=== PATIENT | male | born 1950 | race African-American/Black ===

== ENCOUNTER 2016-06-13 22:32 | Observation (INO) | payer BC ==
--- NOTE | 2016-06-13 22:54 | EDM.PDOC ---
ED HPI Trauma - General Chief Complaint: Upper Extremity Injury/Pain Stated Complaint: PT HAS CHEST DISCOMFORT/shoulder pain Source: Reports: Patient History Limitations: Reports: No limitations - History of Present Illness INITIAL COMMENTS - FREE TEXT/NARRATIVE: HISTORY AND PHYSICAL: History of present illness: [66-year-old male with a history of hypertension high cholesterol diabetes and known coronary artery disease now presents to the emergency department complaining of chest pain patient was doing strenuous lifting prior to arrival when he experienced sudden onset of left-sided chest pain. Denies pleuritic pain. Pain is not reproducible. No productive cough or fever. Is no history of blood clot or hypercoagulable state. Patient had a cardiac catheterization more than a decade ago that he states to find multiple lesions but none greater than 30% blockage. Review of systems: As per history of present illness and below otherwise all systems reviewed and negative. Past medical history: As per history of present illness and as reviewed below otherwise noncontributory. Surgical history: As per history of present illness and as reviewed below otherwise noncontributory. Social history: No reported history of drug or alcohol abuse. Family history: As per history of present illness and as reviewed below otherwise noncontributory. Physical exam: HEENT: Atraumatic, normocephalic, pupils reactive, negative for conjunctival pallor or scleral icterus, mucous membranes moist, throat clear, neck supple, nontender, trachea midline. Lungs: Clear to auscultation, breath sounds equal bilaterally, chest nontender. Heart: S1S2, regular, negative for clicks, rubs, or JVD. Abdomen: Soft, nondistended, nontender. Negative for masses or hepatosplenomegaly. Negative for costovertebral tenderness. Pelvis: Stable nontender. Genitourinary: Deferred. Rectal: Deferred. Extremities: Atraumatic, negative for cords or calf pain. Neurovascular unremarkable. Neuro: Awake, alert, oriented. Cranial nerves II through XII unremarkable. Cerebellum unremarkable. Motor and sensory unremarkable throughout. Exam nonfocal. Diagnostics: [EKG with normal sinus rhythm at 61 normal axis no STEMI. Chest x-ray chronic changes no acute disease interpreted by me CTA of the chest normal aorta no dissection no PE otherwise unremarkable] Therapeutics: [Aspirin given] Impression: [Chest pain] Plan: [Signs and symptoms consistent with chest pain possible cardiac etiology in a 66 -year-old male with multiple cardiac risk factors and known noncritical prior artery artery disease last evaluated more than a decade ago. Workup unremarkable. Discussed with patient cannot rule out cardiac etiology. He agrees with observation admission. Case discussed with Dr. Gupta hospitalist sports nutritionist is aware of history and findings and agrees with observation admission to his service for full cardiac workup position and diagnosis as appropriate pending reevaluation and review of above. Allergies/ADRs: Allergies No Known Allergies Allergy (Verified 02/25/16 01:05) Home Medications: Ambulatory Orders Aspirin [Gissel Chewable Aspirin] 81 mg PO DAILY 12/01/13 [Confirmed 06/13/16] Valsartan 320 mg PO DAILY 08/27/14 [Confirmed 06/13/16] Metoprolol Succinate [Toprol XL] 100 mg PO DAILY tab.er 02/25/16 [Confirmed 04/27] Nitroglycerin [IJP: Nitroglycerin] 1 tab SL ASDIRECTED 02/25/16 [Confirmed 06/13] Spironolactone [Aldactone] 25 mg PO DAILY tablet 02/25/16 [Confirmed 06/13/16] metFORMIN [Glucophage XR] 500 mg PO BID #60 tab.er 02/25/16 [Confirmed 06/13/16] Glimepiride 2 mg PO BIDMEALS 06/13/16 [Confirmed 06/13/16] Tamsulosin [Flomax] 0.4 mg PO DAILY 06/13/16 [Confirmed 06/13/16] Past Medical History HEENT History: Reports: Other (see below) Other HEENT History: wear glasses Cardiovascular History: Reports: CAD, High cholesterol, Hypertension Respiratory History: Reports: None Gastrointestinal History: Reports: Colon polyp, GERD, Other (see below) Other Gastrointestinal History: bleeding ulcer, acid reflux, states has gallstones Genitourinary History: Reports: None, BPH Musculoskeletal History: Reports: Arthritis, Gout Neurological History: Reports: None Psychiatric History: Reports: None Endocrine/Metabolic History: Reports: Diabetes, type II, Obesity/BMI 30+ Hematologic History: Reports: None Immunologic History: Reports: None Oncologic (Cancer) History: Reports: None Dermatologic History: Reports: None - Infectious Disease History Infectious Disease History: Reports: None - Past Surgical History Head Surgeries/Procedures: Reports: None HEENT Surgical History: Reports: None Other Cardiovascular Surgeries/Procedures: angiogram x2, no stents were placed Respiratory Surgical History: Reports: None GI Surgical History: Reports: Colonoscopy, EGD Male Surgical History: Reports: None Neurological Surgical History: Reports: None Social & Family History - Family History Family Medical History: Noncontributory Cardiac: Reports: Hypertension, [place] - Tobacco Use Smoking Status *Q: Never Smoker Second Hand Smoke Exposure: No - Caffeine Use Caffeine Use: Reports: Coffee, Tea, Other Other Caffeine Use: De caffenated Caffeine Use Comment: decaffeineted coffee - Alcohol Use Days Per Week of Alcohol Use: 0 - Recreational Drug Use Recreational Drug Use: No Drug Use in Last 12 Months: No Review of Systems - Review of Systems Review Of Systems: See Below (Per history of present illness) Trauma Exam - Physical Exam Exam: See Below (Per history of present illness) Course - Vital Signs Last Recorded V/S: Last Vital Signs Temp 36.7 C 06/13/16 23:03 Pulse 80 06/13/16 23:03 Resp 18 06/13/16 23:03 BP 132/79 06/13/16 23:03 Pulse Ox 97 06/13/16 23:03 - Orders/Labs/Meds Orders: Active Orders 24 hr Category Date Time Status Admission Status [Patient Status] [ADT] Stat ADT 06/14/16 02:00 Ordered EKG Documentation Completion [RC] STAT Care 06/13/16 23:35 Active CTA Chest W WO Contrast [Ang Chest] [CT] Stat Exams 06/13/16 23:35 Taken Chest 1V Frontal [CR] Stat Exams 06/13/16 23:35 Taken Sodium Chloride 0.9% [Normal Saline] 1,000 ml Med 06/14/16 01:00 Active IV ASDIRECTED Medication Orders Sodium Chloride (Normal Saline) 1,000 mls @ 999 mls/hr IV ASDIRECTED [facility] Last Admin: 06/14/16 01:16 Dose: 999 mls/hr Labs: Laboratory Tests 06/13/16 06/13/16 06/13/16 Range/Units 23:45 23:45 23:45 WBC 7.89 (4.0-11.0) K/uL RBC 5.04 (4.50-5.90) M/uL Hgb 13.4 (13.0-17.0) g/dL Hct 42.3 (38.0-50.0) % MCV 83.9 (80.0-98.0) fL MCH 26.6 L (27.0-32.0) pg MCHC 31.7 (31.0-37.0) g/dL RDW Std Deviation 40.5 (28.0-62.0) fl RDW Coeff of Vanna 13 (11.0-15.0) % Plt Count 261 (150-400) K/uL MPV 9.30 (7.40-12.00) fL Neut % (Auto) 40.7 L (48.0-80.0) % Lymph % (Auto) 48.0 H (16.0-40.0) % [place] % (Auto) 7.5 (0.0-15.0) % Eos % (Auto) 3.3 (0.0-7.0) % Baso % (Auto) 0.5 (0.0-1.5) % Neut # (Auto) 3.2 (1.4-5.7) K/uL Lymph # (Auto) 3.8 H (0.6-2.4) K/uL [place] # (Auto) 0.6 (0.0-0.8) K/uL Eos # (Auto) 0.3 (0.0-0.7) K/uL Baso # (Auto) 0.0 (0.0-0.1) K/uL Nucleated RBC % 0.0 /100WBC Nucleated RBCs # 0 K/uL Sodium 138 (136-146) mmol/L Potassium 4.1 (3.5-5.1) mmol/L Chloride 105 (98-110) mmol/L Carbon Dioxide 20 L (21-31) mmol/L BUN 18 (6.0-23.0) mg/dL Creatinine 1.3 (0.6-1.5) mg/dL Est Cr Clr Drug Dosing 52.13 mL/min Estimated GFR (MDRD) > 60.0 ml/min Glucose 80 (60-110) mg/dL Calcium 9.5 (8.8-10.8) mg/dL Total Bilirubin 0.5 (0.1-1.5) mg/dL AST 45 H (5-40) IU/L ALT 34 (8-54) IU/L Alkaline Phosphatase 86 (40-150) Creatine Kinase 1575 H (9-236) IU/L Troponin I < 0.10 (0.0-0.29) NG/ML Total Protein 8.9 H (6.0-8.0) g/dL Albumin 4.4 (3.4-4.8) g/dL Globulin 4.5 H (2.0-3.5) g/dL Albumin/Globulin Ratio 1.0 L (1.3-2.8) Meds: Medications Generic Name Dose Route Start Last Admin Trade Name Freq PRN Reason Stop Dose Admin Sodium Chloride 1,000 mls @ 999 mls/hr 06/14/16 01:00 06/14/16 01:16 Normal Saline IV 999 mls/hr ASDIRECTED [facility] Administration Discontinued Medications Generic Name Dose Route Start Last Admin Trade Name Freq PRN Reason Stop Dose Admin Iopamidol 50 ml 06/14/16 01:21 06/14/16 01:21 Isovue Multipack-370 (76%) IVPUSH 06/14/16 01:22 50 ml ONETIME STA Administration Departure - Departure Time of Disposition: 02:28 Disposition: Refer to Observation Condition: good Clinical Impression: Chest pain - My Orders Last 24 Hours: My Active Orders 06/13/16 23:35 EKG Documentation Completion [RC] STAT CTA Chest W WO Contrast [Ang Chest] [CT] Stat Chest 1V Frontal [CR] Stat 06/14/16 01:00 Sodium Chloride 0.9% [Normal Saline] 1,000 ml IV ASDIRECTED 06/14/16 02:00 Admission Status [Patient Status] [ADT] Stat - Assessment/Plan Last 24 Hours: My Active Orders 06/13/16 23:35 EKG Documentation Completion [RC] STAT CTA Chest W WO Contrast [Ang Chest] [CT] Stat Chest 1V Frontal [CR] Stat 06/14/16 01:00 Sodium Chloride 0.9% [Normal Saline] 1,000 ml IV ASDIRECTED 06/14/16 02:00 Admission Status [Patient Status] [ADT] Stat
[2016-06-14 00:32] LABS: CHLORIDE,CL 105 mmol/L (98-110); SODIUM,NA 138 mmol/L (136-146)
[2016-06-14] MEDS ORDERED: Sodium Chloride 0.9% 1,000 ML IV SCH (01:00)
[2016-06-14] MEDS ORDERED: Iopamidol 755 MG/ML 500 ML Multipack Bottle IVPUSH STA (01:21)
[2016-06-14] MEDS ORDERED: Ondansetron 4 MG/2 ML SDV IVPUSH ONE (02:36)
--- NOTE | 2016-06-14 03:30 | PCM.HP ---
H&P History of Present Illness - General Date of Service: 06/14/16 Admit Problem/Dx: Admission Diagnosis/Problem Admission Diagnosis/Problem Chest pain Source of Information: Patient - History of Present Illness Initial Comments - Free Text/Narative: ^^ y o diabetic hypertensive hyperlipidemic man with history non-occlusive CAD several years ago comes to Er with L anterior chest iman that feels like a pulled muscle an only comes on with reaching into a may cabinet. 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 He has been diagnosed with fibromyalgia Onset of Symptoms: Reports: unknown/unsure Duration of Symptoms: Reports: Other (brief) Location: Reports: chest (L pectoral rosina) Quality: Reports: Other (Like a pulled muscle) Worsens with: Reports: Movement (of L arm) Associated Symptoms: Reports: no other symptoms - Related Data Allergies/Adverse Reactions: Allergies Allergy/AdvReac Type Severity Reaction Status Date / Time No Known Allergies Allergy Verified 02/25/16 01:05 Home Medications: Home Meds Aspirin [Gissel Chewable Aspirin] 81 mg PO DAILY 12/01/13 [History] Valsartan 320 mg PO DAILY 08/27/14 [History] Metoprolol Succinate [Toprol XL] 100 mg PO DAILY tab.er 02/25/16 [Rx] Nitroglycerin [IJP: Nitroglycerin] 1 tab SL ASDIRECTED 02/25/16 [History] Spironolactone [Aldactone] 25 mg PO DAILY tablet 02/25/16 [Rx] metFORMIN [Glucophage XR] 500 mg PO BID #60 tab.er 02/25/16 [Rx] Glimepiride 2 mg PO BIDMEALS 06/13/16 [History] Tamsulosin [Flomax] 0.4 mg PO DAILY 06/13/16 [History] Past Medical History HEENT History: Reports: Other (see below) Other HEENT History: wear glasses Cardiovascular History: Reports: CAD, High cholesterol, Hypertension Respiratory History: Reports: None Gastrointestinal History: Reports: Colon polyp, GERD, Other (see below) Other Gastrointestinal History: bleeding ulcer, acid reflux, beeing w/u for dysphagia states has gallstones Genitourinary History: Reports: None, BPH, Other (see below) (nocturia takes tamulosin) Musculoskeletal History: Reports: Arthritis, Gout Neurological History: Reports: None Psychiatric History: Reports: None Endocrine/Metabolic History: Reports: Diabetes, type II, Obesity/BMI 30+ Hematologic History: Reports: None Immunologic History: Reports: None Oncologic (Cancer) History: Reports: None Dermatologic History: Reports: None - Infectious Disease History Infectious Disease History: Reports: None - Past Surgical History Head Surgeries/Procedures: Reports: None HEENT Surgical History: Reports: None Other Cardiovascular Surgeries/Procedures: angiogram x2, no stents were placed Respiratory Surgical History: Reports: None GI Surgical History: Reports: Colonoscopy, EGD Male Surgical History: Reports: None Neurological Surgical History: Reports: None Social & Family History - Family History Family Medical History: Noncontributory Cardiac: Reports: Hypertension, [place] Other Family History: younger half siblings ok - Tobacco Use Smoking Status *Q: Never Smoker Second Hand Smoke Exposure: No - Caffeine Use Caffeine Use: Reports: Coffee, Tea, Other Other Caffeine Use: De caffenated Caffeine Use Comment: decaffeineted coffee - Alcohol Use Days Per Week of Alcohol Use: 0 - Recreational Drug Use Recreational Drug Use: No Drug Use in Last 12 Months: No - Living Situation & Occupation Living situation: Reports: (working here 6 yrs, in [place]) H&P Review of Systems - Review of Systems: Review Of Systems: See Below General: Reports: weight gain (slow over the years) Pulmonary: Reports: No Symptoms Cardiovascular: Reports: chest pain (non exertional) Gastrointestinal: Reports: Difficulty swallowing (solids frequently get stuck upper sternal area), Other (reflux with water brash) Genitourinary: Reports: other (nocturia) Musculoskeletal: Reports: other (various aches and pains) Exam - Exam Exam: See Below - Vital Signs Vital Signs: Last Vital Signs Temp 36.7 C 06/13/16 23:03 Pulse 67 06/14/16 02:51 Resp 17 06/14/16 02:51 BP 140/85 06/14/16 02:51 Pulse Ox 97 06/14/16 02:51 Weight: 104 kg - Exam General: alert, other (bradypsychic) HEENT: Conjunctiva clear Neck: 2+ carotid pulse wo bruit Lungs: Clear to auscultation, Other (no chest wall or pectoral area tenderness) Cardiovascular: regular rate Abdomen: soft Rectal (Males) Exam: Deferred Extremities: normal inspection Skin: warm, dry, intact - Patient Data Result Diagrams: 06/13/16 23:45 06/13/16 23:45 *Q Meaningful Use (ADM) - VTE *Q VTE Criteria *Q: - Stroke *Q Stroke Criteria *Q: - AMI *Q AMI Criteria *Q: Problem List Initiated/Reviewed/Updated: Yes Orders Last 24hrs: Medication Orders Sodium Chloride (Normal Saline) 1,000 mls @ 999 mls/hr IV ASDIRECTED [facility] Last Admin: 06/14/16 01:16 Dose: 999 mls/hr Assessment/Plan Comment:: atypical pain probably muscular in origin Hx non occlusive CAD and multiple risk factors for progress diabetes hyperlipidemia hypertension ?family elevated CPK ?statins dysphagia probable esophageal pathology
[2016-06-14] MEDS ORDERED: Ibuprofen 400 MG Tab PO PRN (03:42)
[2016-06-14] MEDS ORDERED: Nitroglycerin 0.4 MG Tab.SL SL PRN (04:00)
[2016-06-14] MEDS ORDERED: metFORMIN 500 MG Tab.ER PO SCH (09:00)
[2016-06-14] MEDS ORDERED: Tamsulosin 0.4 MG Cap.ER PO SCH (09:00)
[2016-06-14] MEDS ORDERED: Spironolactone 25 MG Tab PO SCH (09:00)
[2016-06-14] MEDS ORDERED: Metoprolol Succinate 100 MG Tab.ER PO SCH ×2 (09:00→21:00)
[2016-06-14] MEDS ORDERED: Aspirin 81 MG Tab.Chew PO SCH ×2 (09:00→21:00)
[2016-06-14 09:20] VITALS: BP 105/62
--- NOTE | 2016-06-14 09:22 | PCM.PN ---
- General Info Date of Service: 06/15/16 Functional Status: Reports: other (no recurrence of chest pain, no dysphagia at breakfast (pancakes)). Denies: new symptoms - Review of Systems General: Reports: No Symptoms HEENT: Reports: no symptoms Pulmonary: Reports: no symptoms Cardiovascular: Reports: No Symptoms Gastrointestinal: Reports: No symptoms Musculoskeletal: Reports: no symptoms - Patient Data Vitals - most recent: Last Vital Signs Temp 36.3 C 06/14/16 03:42 Pulse 57 L 06/14/16 03:42 Resp 18 06/14/16 03:42 BP 105/60 06/14/16 03:42 Pulse Ox 97 06/14/16 03:43 Weight - most recent: 104 kg I&O - last 24 hours: Intake & Output 06/13/16 06/14/16 06/14/16 22:59 06:59 14:59 Output Total 180 Balance -180 Lab Results last 24 hrs: Laboratory Results - last 24 hr 06/14/16 Range/Units 04:23 Troponin I < 0.10 (0.0-0.29) NG/ML Med Orders - Current: Current Medications Aspirin (Aspirin) 81 mg PO DAILY [facility] Glimepiride (Glimepiride) 2 mg PO BIDMEALS [facility] Last Admin: 06/14/16 08:59 Dose: 2 mg Sodium Chloride (Normal Saline) 1,000 mls @ 999 mls/hr IV ASDIRECTED [facility] Last Admin: 06/14/16 01:16 Dose: 999 mls/hr Ibuprofen (Motrin) 400 mg PO Q6H PRN PRN Reason: Pain (mild 1-3) Metformin HCl (Glucophage Xr) 500 mg PO BID [facility] Last Admin: 06/14/16 08:59 Dose: 500 mg Metoprolol Succinate (Toprol Xl) 100 mg PO DAILY [facility] Nitroglycerin (Nitrostat) 0.4 mg SL ASDIRECTED PRN PRN Reason: CHEST PAIN Spironolactone (Aldactone) 25 mg PO DAILY [facility] Last Admin: 06/14/16 09:00 Dose: 25 mg Tamsulosin HCl (Flomax) 0.4 mg PO DAILY [facility] Last Admin: 06/14/16 08:59 Dose: 0.4 mg Valsartan (Diovan) 320 mg PO DAILY [facility] Discontinued Medications Iopamidol (Isovue Multipack-370 (76%)) 50 ml IVPUSH ONETIME STA Stop: 06/14/16 01:22 Last Admin: 06/14/16 01:21 Dose: 50 ml Ondansetron HCl (Zofran) 4 mg IVPUSH ONETIME ONE Stop: 06/14/16 02:37 Last Admin: 06/14/16 02:45 Dose: 4 mg - Exam General: alert, oriented Neck: supple Lungs: Clear to auscultation Cardiovascular: Regular Rate Abdomen: soft (Male) Exam: Deferred Extremities: no tenderness/swelling - Problem List Review Problem List Initiated/Reviewed/Updated: Yes - My Orders Last 24 Hours: My Active Orders 06/14/16 03:42 Blood Glucose Check, Bedside [RC] TIDMEALS Vital Signs [RC] Q4H Consult to Physician [CONS] Routine Ibuprofen [Motrin] 400 mg PO Q6H PRN Resuscitation Status Routine 06/14/16 03:43 Oxygen Therapy [RC] PRN 06/14/16 04:00 Nitroglycerin [Nitrostat] 0.4 mg SL ASDIRECTED PRN 06/14/16 04:12 Telemetry Monitoring [Cardiac Monitoring] [RC] Q8H 06/14/16 08:00 Glimepiride 2 mg PO BIDMEALS 06/14/16 09:00 Aspirin 81 mg PO DAILY Metoprolol Succinate [Toprol XL] 100 mg PO DAILY Spironolactone [Aldactone] 25 mg PO DAILY Tamsulosin [Flomax] 0.4 mg PO DAILY Valsartan [Diovan] 320 mg PO DAILY metFORMIN [Glucophage XR] 500 mg PO BID 06/14/16 Breakfast [place] [employer] Diet [DIET] - Assessment Assessment:: non cardiac pain troponin normal x2 ECG pending CK was 1575, pt has been on atorvastatin bout 3 months though it is not listed in the EMR Dr Hernandez to see - Plan Plan:: atypical pain probably muscular in origin Hx non occlusive CAD and multiple risk factors for progress diabetes hyperlipidemia hypertension ?family elevated CPK ?statins dysphagia probable esophageal pathology
--- NOTE | 2016-06-14 12:57 | PCM.DCSUM1 ---
Discharge Summary - Hospital Course Free Text/Narrative:: pt with known non-occlusive CAD presented to ER with atypical L upper chest iman HPI Initial Comments: Pt denies any exertional component to the pain which is more or less random though often provoked by reaching above head Brief History: Ecg showed L axis deviation with no signs of ischemia or prior infarction, troponin was normalon 3 determinations Blood sugar normal. CPK was elevated at 1575 .Dr Hernandez reports thiis is an increase from values before staking Atovastatin and he will substitute Divalo - Discharge Data Discharge Date: 06/14/16 Discharge Disposition: Home, Self-Care 01 Condition: Good - Discharge Diagnosis/Problem(s) (1) Atypical chest pain SNOMED Code(s): 214046418 ICD Code: R07.89 - OTHER CHEST PAIN Status: Acute Priority: High Current Visit: No (2) Diabetes mellitus type II, non insulin dependent SNOMED Code(s): 23757341 ICD Code: E11.9 - TYPE 2 DIABETES MELLITUS WITHOUT COMPLICATIONS Status: Chronic Priority: Medium Current Visit: No (3) Dysphagia SNOMED Code(s): 11304172, 510861882 ICD Code: R13.10 - DYSPHAGIA, UNSPECIFIED Status: Suspected Priority: Medium Current Visit: No - Patient Summary/Data Consults: Consultations 06/14/16 03:42 Consult to Physician [CONS] Routine - Patient Instructions Diet: Usual Diet as Tolerated Driving: May Drive Today - Discharge Plan Home Medications: Home Meds Aspirin [Gissel Chewable Aspirin] 81 mg PO DAILY 12/01/13 [History] Valsartan 320 mg PO DAILY 08/27/14 [History] Metoprolol Succinate [Toprol XL] 100 mg PO DAILY tab.er 02/25/16 [Rx] Nitroglycerin [IJP: Nitroglycerin] 0.4 mg SL ASDIRECTED 02/25/16 [History] Spironolactone [Aldactone] 25 mg PO DAILY tablet 02/25/16 [Rx] metFORMIN [Glucophage XR] 500 mg PO BID #60 tab.er 02/25/16 [Rx] Glimepiride 2 mg PO BIDMEALS 06/13/16 [History] Tamsulosin [Flomax] 0.4 mg PO DAILY 06/13/16 [History] Referrals: PCP,None [Primary Care Provider] - Zachary Johnson MD [Physician] - - Discharge Summary/Plan Comment DC Time >30 min.: No - Patient Data Vitals - Most Recent: Last Vital Signs Temp 36.5 C 06/14/16 08:00 Pulse 55 L 06/14/16 08:00 Resp 16 06/14/16 08:00 BP 105/62 06/14/16 08:00 Pulse Ox 97 06/14/16 08:00 Weight - Most Recent: 104 kg I&O - Last 24 hours: Intake & Output 06/13/16 06/14/16 06/14/16 22:59 06:59 14:59 Output Total 180 Balance -180 Lab Results - Last 24 hrs: Laboratory Results - last 24 hr 06/14/16 06/14/16 06/14/16 Range/Units 04:23 06:26 10:33 POC Glucose 90 (60-110) mg/dL Troponin I < 0.10 < 0.10 (0.0-0.29) NG/ML Med Orders - Current: Current Medications Aspirin (Aspirin) 81 mg PO BEDTIME [facility] Glimepiride (Glimepiride) 2 mg PO BIDMEALS [facility] Last Admin: 06/14/16 08:59 Dose: 2 mg Sodium Chloride (Normal Saline) 1,000 mls @ 999 mls/hr IV ASDIRECTED [facility] Last Admin: 06/14/16 01:16 Dose: 999 mls/hr Ibuprofen (Motrin) 400 mg PO Q6H PRN PRN Reason: Pain (mild 1-3) Metformin HCl (Glucophage Xr) 500 mg PO BID [facility] Last Admin: 06/14/16 08:59 Dose: 500 mg Metoprolol Succinate (Toprol Xl) 100 mg PO BEDTIME [facility] Nitroglycerin (Nitrostat) 0.4 mg SL ASDIRECTED PRN PRN Reason: CHEST PAIN Spironolactone (Aldactone) 25 mg PO DAILY [facility] Last Admin: 06/14/16 09:00 Dose: 25 mg Tamsulosin HCl (Flomax) 0.4 mg PO DAILY [facility] Last Admin: 06/14/16 08:59 Dose: 0.4 mg Valsartan (Diovan) 320 mg PO BEDTIME [facility] Discontinued Medications Iopamidol (Isovue Multipack-370 (76%)) 50 ml IVPUSH ONETIME STA Stop: 06/14/16 01:22 Last Admin: 06/14/16 01:21 Dose: 50 ml Ondansetron HCl (Zofran) 4 mg IVPUSH ONETIME ONE Stop: 06/14/16 02:37 Last Admin: 06/14/16 02:45 Dose: 4 mg *Q Meaningful Use (DIS) - VTE *Q VTE Criteria *Q: - Stroke *Q Stroke Criteria *Q: - AMI *Q AMI Criteria *Q:
--- NOTE | 2016-06-14 15:44 | CT ---
EXAM DATE: 06/14/16 PATIENT'S AGE: 66 Patient: CHRISTIAN FITCH Facility: [place], [place] Site . Site : 1950 Study: CT Chest Angio [id number]/4/2017 1:18:48 AM Ordering Physician: Sridhar Nazario Final Report: INDICATION: Left upper chest pain. TECHNIQUE: CT chest pulmonary angiogram acquired with IV contrast. 50 cc Isovue 370. COMPARISON: None FINDINGS: Cardiovascular structures: Normal vascular enhancement of the pulmonary arteries , no sign of pulmonary embolism. Heart size is normal. No sign of aneurysm or dissection in the thoracic aorta. Mediastinum and angella: No mass or adenopathy. Lungs: Clear. Pleura and pericardium: No effusions. Chest wall and axilla: No mass or adenopathy. Bones: No significant findings. Upper abdomen: Unremarkable. IMPRESSION: Unremarkable chest CT angiogram. Specifically, no pulmonary embolism, aortic dissection, or pneumonia. Dictated by Dayron Chavez MD @ 06/14/2016 1:31:10 AM Dictated by: Dayron Chavez MD @ 06/14/2016 01:31:16 (Electronic Signature) Report Signed by Proxy. [facility]
--- NOTE | 2016-06-14 15:56 | CR ---
EXAM DATE: 06/14/16 PATIENT'S AGE: 66 Patient: CHRISTIAN FITCH Facility: [place], [place] Site . Site : 1950 Study: XRay Chest [id number]/4/2017 1:19:39 AM Ordering Physician: Sridhar Nazario Final Report: INDICATION: CHEST PAIN. LEFT UPPER CHEST PAIN SINCE 1400HRS TODAY. NO NUMBNESS OR TINGLING. TECHNIQUE: Chest 1 view. COMPARISON: None. FINDINGS: Cardiovascular and mediastinum: Heart size and vasculature are normal in caliber and appearance. Mediastinum is within normal limits. Lungs and pleural space: Lungs are clear. No sign of infiltrate or mass. No sign of pleural effusion. No pneumothorax. Bones and soft tissues: No significant findings. IMPRESSION: Unremarkable chest. Dictated by: Dayron Chavez MD @ 06/14/2016 01:21:23 (Electronic Signature) Report Signed by Proxy. [facility]
--- NOTE | 2016-06-21 06:32 | CONS ---
DATE OF CONSULTATION: DATE OF : 1950 PRIMARY CARE PHYSICIAN: None PCP REASON FOR CONSULTATION: Chest pain. HISTORY OF PRESENT ILLNESS: This is a 66-year-old male with history of nonobstructive CAD, history of diabetes, hypertension, history of gallstone, and gout, who presented to the hospital at this time due to the chest pain. He does have chest pain that is a sharp pain on the left side of the chest wall when he was lifting up the vacuum. It was a very few seconds and very brief, short period of time and it has gone away by itself. It was like probably 1 to 2 from 10 pain scale. No radiation and this happened again when he was reaching the cabinet before he came to the emergency room. In the emergency room, CT angiogram also was done and was negative for PE. I saw him in the clinic for the preop for gallbladder surgery and at that time, an exercise echo done in [place] in October of last year was normal with preserved ejection fraction with LVH and no wall motion abnormality on exercise and he also was found to have elevated CPK, but it seems like his CPK has been elevated prior to statin. He has only started taking Lipitor since February. At this time, CPK was elevated to 1575. He also was told that he has fibromyalgia as well from a doctor in [place]. 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 He did not have any problem with chest pain or shortness of breath, but some time when he walked 2 flights of stairs, he can get tired, but no chest pain. No symptoms of feeling dizzy, leg swelling, or passing out and he has not been taking Plavix as well. EKG remained negative. Troponin was negative as well x3. PAST MEDICAL HISTORY: Including CAD, diabetes, hypertension, and high cholesterol. Recent cardiac testing including exercise echocardiogram in 2015 in [place], negative stress test for ischemia, showed aortic sclerosis, moderate LVH, no chest pain, but hypertensive response. EKG on June 14, 2016 shows sinus rhythm and heart rate of 56, WV interval 180, QRS duration 96, QTc interval 402. ALLERGIES: No known drug allergies. PAST SURGICAL HISTORY: Including EGD. FAMILY HISTORY: No history of CAD. SOCIAL HISTORY: He denies smoking, never smoked. Occasional drink and no drug use. REVIEW OF SYSTEMS: Has been negative for 12-point review of systems except indicated in the HPI. PHYSICAL EXAMINATION: VITAL SIGNS: Blood pressure 105/62, heart rate of 55, temperature 36.5, O2 saturation 97, and respirations 16. HEENT: Not pale. No jaundice. HEART: Normal S1, S2. No murmur. LUNGS: Clear. ABDOMEN: Soft, nontender. Bowel sounds present. No hepatosplenomegaly. EXTREMITIES: No edema. LABORATORY DATA: CBC 7, hematocrit 42, platelet 261. Sodium 138, potassium 4.1, chloride 105, bicarb 20, creatinine 1.3. Troponin is negative x3. CPK of 1575, it was higher before from the previous labs. CURRENT MEDICATIONS: Including Aldactone 25 once a day, valsartan 320 once a day, metoprolol 100 mg once a day, metformin 500 mg twice a day, glimepiride 2 mg twice a day, Lipitor 40 mg once a day, aspirin 81 mg once a day, he did not take the Plavix. ASSESSMENT AND PLAN: This is a 66-year-old male, who presented to the hospital at this time due to chest pain. It does not sound like cardiac angina to me and he has negative stress test last year with preserved ejection fraction and from the patient's story, it seems like musculoskeletal, muscle related to position and related to movement and EKG, no changes. Troponin was negative and it was negative for CT angio for PE. I believe he can be going home and regarding his elevated CPK, he has had elevated CPK for a long period of time. I would change it to some other statin that has least side effects from it. I would recommend to stop the Lipitor and then start other kind of statin, and then he should be able to be discharged. ZAHRAA / ALAN /[id number] CEM
== END 2016-06-14 14:30 | disposition home or self-care (01) ==
LOC: MW.ED 22:32 → MW.MS 06-14 02:00
PROVIDERS: ADMIT Internal Medicine; ATTEND Internal Medicine
DX: R07.89 Other chest pain (principal); E11.65 Type 2 diabetes mellitus with hyperglycemia; R13.10 Dysphagia, unspecified; I10 Essential (primary) hypertension; I25.10 Atherosclerotic heart disease of native coronary artery without angina pectoris; E78.5 Hyperlipidemia, unspecified; M79.7 Fibromyalgia; E78.00 Pure hypercholesterolemia, unspecified; K21.9 Gastro-esophageal reflux disease without esophagitis; N40.1 Benign prostatic hyperplasia with lower urinary tract symptoms; R35.1 Nocturia; M19.90 Unspecified osteoarthritis, unspecified site; M10.9 Gout, unspecified; E66.9 Obesity, unspecified; Z86.010 Personal history of colon polyps; Z82.49 Family history of ischemic heart disease and other diseases of the circulatory system; Z79.82 Long term (current) use of aspirin; Z79.84 Long term (current) use of oral hypoglycemic drugs; Z79.899 Other long term (current) drug therapy; Z98.890 Other specified postprocedural states
CPT/HCPCS: 36415; 71010; 71275; 80053; 82550; 82962; 84484; 85025; 93005; 96361; 96374; 99285; A9270; J2405; J7040; Q9967; G0378

== ENCOUNTER 2016-06-21 11:06 | Emergency (ER) | payer BC ==
--- NOTE | 2016-06-21 11:32 | EDM.PDOC ---
ED HPI GENERAL MEDICAL PROBLEM - General Chief Complaint: General Stated Complaint: PROBLEM WITH BLOOD PRESSURE Time Seen by Provider: 06/21/16 11:28 Source of Information: Reports: Patient History Limitations: Reports: No Limitations - History of Present Illness INITIAL COMMENTS - FREE TEXT/NARRATIVE: HISTORY AND PHYSICAL: History of present illness: [Patient comes to the emergency room complaining of feeling "woozy". He requests that his blood pressure be checked. He checked it at [employer] this morning and the machine gave him an error message. He's not had any chest pain, shortness of breath or difficulty breathing. He admits that he did not eat breakfast this morning and that he overall has a poor diet. Has a known history of hyperlipidemia, diabetes, hypertension, and coronary artery disease. He was hospitalized last week due to some chest pain which was determined to be noncardiac. He has no other complaints or concerns today other than that his blood pressure may be elevated.] Review of systems: As per history of present illness and below otherwise all systems reviewed and negative. Past medical history: As per history of present illness and as reviewed below otherwise noncontributory. Surgical history: As per history of present illness and as reviewed below otherwise noncontributory. Social history: No reported history of drug or alcohol abuse. Family history: As per history of present illness and as reviewed below otherwise noncontributory. Physical exam: HEENT: Atraumatic, normocephalic. PERRLA. EOMI. negative for conjunctival pallor or scleral icterus. mucous membranes moist. Lungs: Clear to auscultation, breath sounds equal bilaterally. Heart: S1S2, regular rate rhythm. No murmur gallop click or rub. Abdomen: Overweight. Soft, nondistended, nontender. Pelvis: Stable nontender. Genitourinary: Deferred. Rectal: Deferred. Extremities: Atraumatic. Neurovascular unremarkable. Neuro: Awake, alert, oriented. Motor and sensory unremarkable throughout. Exam nonfocal. Impression: [HTN] Plan: [Discussed with patient that his blood pressure is 123/66 which is excellent. Patient is satisfied with this reading. Recommend that he continue taking all his medications as prescribed, followup with his primary care provider and to go to the [facility] or lunch they have money today. He is in agreement with today's plan all of his questions are answered and concerns are addressed.] Definitive disposition and diagnosis as appropriate pending reevaluation and review of above. - Related Data Allergies Allergy/AdvReac Type Severity Reaction Status Date / Time No Known Allergies Allergy Verified 06/21/16 11:32 Home Meds: Home Meds Aspirin [Gissel Chewable Aspirin] 81 mg PO DAILY 12/01/13 [History] Valsartan 320 mg PO DAILY 08/27/14 [History] Metoprolol Succinate [Toprol XL] 100 mg PO DAILY tab.er 02/25/16 [Rx] Nitroglycerin [IJP: Nitroglycerin] 0.4 mg SL ASDIRECTED 02/25/16 [History] Spironolactone [Aldactone] 25 mg PO DAILY tablet 02/25/16 [Rx] metFORMIN [Glucophage XR] 500 mg PO BID #60 tab.er 02/25/16 [Rx] Glimepiride 2 mg PO BIDMEALS 06/13/16 [History] Tamsulosin [Flomax] 0.4 mg PO DAILY 06/13/16 [History] Pitavastatin [Livalo] 2 mg PO DAILY #30 tablet 06/14/16 [Rx] Past Medical History HEENT History: Reports: Other (see below) Other HEENT History: wear glasses Cardiovascular History: Reports: CAD, High cholesterol, Hypertension Respiratory History: Reports: None Gastrointestinal History: Reports: Colon polyp, GERD, Other (see below) Other Gastrointestinal History: bleeding ulcer, acid reflux, beeing w/u for dysphagia states has gallstones Genitourinary History: Reports: None, BPH, Other (see below) (nocturia takes tamulosin) Musculoskeletal History: Reports: Arthritis, Gout Neurological History: Reports: None Psychiatric History: Reports: None Endocrine/Metabolic History: Reports: Diabetes, type II, Obesity/BMI 30+ Hematologic History: Reports: None Immunologic History: Reports: None Oncologic (Cancer) History: Reports: None Dermatologic History: Reports: None - Infectious Disease History Infectious Disease History: Reports: None - Past Surgical History Head Surgeries/Procedures: Reports: None HEENT Surgical History: Reports: None Other Cardiovascular Surgeries/Procedures: angiogram x2, no stents were placed Respiratory Surgical History: Reports: None GI Surgical History: Reports: Colonoscopy, EGD Male Surgical History: Reports: None Neurological Surgical History: Reports: None Social & Family History - Family History Family Medical History: Noncontributory Cardiac: Reports: Hypertension, PA - Tobacco Use Smoking Status *Q: Never Smoker Second Hand Smoke Exposure: No - Caffeine Use Caffeine Use: Reports: Coffee, Tea, Other Other Caffeine Use: De caffenated Caffeine Use Comment: decaffeineted coffee - Alcohol Use Days Per Week of Alcohol Use: 0 - Recreational Drug Use Recreational Drug Use: No Drug Use in Last 12 Months: No - Living Situation & Occupation Living situation: Reports: (working here 6 yrs, in [place]) ED ROS GENERAL - Review of Systems Review Of Systems: ROS reveals no pertinent complaints other than HPI. ED EXAM, GENERAL - Physical Exam Exam: See Below Course - Vital Signs Last Recorded V/S: Last Vital Signs Temp 98.9 F 06/21/16 11:59 Pulse 67 06/21/16 11:59 Resp 16 06/21/16 11:59 BP 123/66 06/21/16 11:59 Pulse Ox 95 06/21/16 11:59 - Orders/Labs/Meds Orders: Active Orders 24 hr Category Date Time Status POC Glucose [Blood Glucose Check, Bedside] [RC] ONETIME Care 06/21/16 11:48 Active Labs: Laboratory Tests 06/21/16 Range/Units 11:52 POC Glucose 110 (60-110) mg/dL Departure - Departure Time of Disposition: 11:55 Disposition: Home, Self-Care 01 Condition: good Clinical Impression: Hypertension Qualifiers: Hypertension type: essential hypertension Qualified Code(s): I10 - Essential ( primary) hypertension - Discharge Information Instructions: Hypertension, [id number] Referrals: PCP,None [Primary Care Provider] - Forms: ED Department Discharge Additional Instructions: The following information is given to patients seen in the emergency department who are being discharged to home. This information is to outline your options for follow-up care. We provide all patients seen in our emergency department with a follow-up referral. The need for follow-up, as well as the timing and circumstances, are variable depending upon the specifics of your emergency department visit. If you don't have a primary care physician on staff, we will provide you with a referral. We always advise you to contact your personal physician following an emergency department visit to inform them of the circumstance of the visit and for follow-up with them and/or the need for any referrals to a consulting specialist. The emergency department will also refer you to a specialist when appropriate. This referral assures that you have the opportunity for follow-up care with a specialist. All of these measure are taken in an effort to provide you with optimal care, which includes your follow-up. Under all circumstances we always encourage you to contact your private physician who remains a resource for coordinating your care. When calling for follow-up care, please make the office aware that this follow-up is from your recent emergency room visit. If for any reason you are refused follow-up, please contact the [facility] emergency department at and asked to speak to the emergency department charge nurse. [facility] [address] [place] [id number] Followup with your primary care provider at the clinic listed above in 48-72 hours. Take all of your medications as prescribed. Make sure that you are eating regularly. Don't skip meals. Return to ER as needed as discussed - My Orders Last 24 Hours: My Active Orders 06/21/16 11:48 POC Glucose [Blood Glucose Check, Bedside] [] ONETIME - Assessment/Plan Last 24 Hours: My Active Orders 06/21/16 11:48 POC Glucose [Blood Glucose Check, Bedside] [] ONETIME
[2016-06-21 12:01] VITALS: BP 123/66
== END 2016-06-21 11:59 | disposition home or self-care (01) ==
LOC: MW.ED 11:06
DX: I10 Essential (primary) hypertension (principal); I25.10 Atherosclerotic heart disease of native coronary artery without angina pectoris; E78.00 Pure hypercholesterolemia, unspecified; K21.9 Gastro-esophageal reflux disease without esophagitis; M19.90 Unspecified osteoarthritis, unspecified site; E11.9 Type 2 diabetes mellitus without complications; E66.9 Obesity, unspecified; M10.9 Gout, unspecified; Z79.82 Long term (current) use of aspirin; Z79.84 Long term (current) use of oral hypoglycemic drugs; Z79.899 Other long term (current) drug therapy
CPT/HCPCS: 82962; 99282

== ENCOUNTER → 2016-07-03 | Outpatient (CLI) | payer BC, OTHER ==
--- NOTE | 2016-07-03 14:31 | CR ---
EXAMINATION: No contrast barium esophagram HISTORY: Reflux COMPARISON: CT dated 06/14/2016 TECHNIQUE: Standard double contrast barium esophagram was performed. FINDINGS: The esophagus appears mildly dilated. There is notable delayed of emptying at the esophage al sphincter. There appears to be a small hiatal hernia with narrowing at the gastroesophageal junct ion. Moderate transverse waves are noted. No ulceration or diverticulum. The mucosa appears normal. IMPRESSION: 1. Small hiatal hernia. 2. Delayed emptying at the gastroesophageal junction with moderate narrowing. This could represent a muscular spasm or achalasia. Direct visualization may be beneficial. 3. Transverse waves noted suggestive of chronic gastroesophageal reflux.
== END ==
LOC: MW.DI 08:54
PROVIDERS: ATTEND Internal Medicine
DX: K21.9 Gastro-esophageal reflux disease without esophagitis (principal); K44.9 Diaphragmatic hernia without obstruction or gangrene; K30 Functional dyspepsia
CPT/HCPCS: 74210; 74210-26

== ENCOUNTER 2017-01-08 19:20 | Emergency (ER) | payer BC ==
[2017-01-08] MEDS ORDERED: Sodium Chloride 0.9% 2.5 ML Syringe FLUSH PRN (19:33)
[2017-01-08] MEDS ORDERED: Sodium Chloride 0.9% 10 ML Syringe FLUSH PRN (19:33)
[2017-01-08] MEDS ORDERED: Aspirin 81 MG Tab.Chew PO ONE (19:33)
[2017-01-08] MEDS ORDERED: Nitroglycerin 2% Oint 1 GM UD Packet TOP ONE (19:33)
--- NOTE | 2017-01-08 19:38 | EDM.PDOC ---
ED HPI GENERAL MEDICAL PROBLEM - General Chief Complaint: Cardiovascular Problem Stated Complaint: PT HAS STOMACH PAINS Time Seen by Provider: 01/08/17 19:32 - History of Present Illness INITIAL COMMENTS - FREE TEXT/NARRATIVE: HISTORY AND PHYSICAL: History of present illness: Patient is a 67-year-old male presents past medical history presents with substernal chest pain and elevated blood pressure is history of hypertension he denies associated palpitations shortness breath nausea vomiting he's had no fever chills or other concern Review of systems: As per history of present illness and below otherwise all systems reviewed and negative. Past medical history: As per history of present illness and as reviewed below otherwise noncontributory. Surgical history: As per history of present illness and as reviewed below otherwise noncontributory. Social history: No reported history of drug or alcohol abuse. Family history: As per history of present illness and as reviewed below otherwise noncontributory. Physical exam: HEENT: Atraumatic, normocephalic, pupils reactive, negative for conjunctival pallor or scleral icterus, mucous membranes moist, throat clear, neck supple, nontender, trachea midline. Lungs: Clear to auscultation, breath sounds equal bilaterally, chest nontender. Heart: S1S2, regular, negative for clicks, rubs, or JVD. Abdomen: Soft, nondistended, nontender. Negative for masses or hepatosplenomegaly. Negative for costovertebral tenderness. Pelvis: Stable nontender. Genitourinary: Deferred. Rectal: Deferred. Extremities: Atraumatic, negative for cords or calf pain. Neurovascular unremarkable. Neuro: Awake, alert, oriented. Cranial nerves II through XII unremarkable. Cerebellum unremarkable. Motor and sensory unremarkable throughout. Exam nonfocal. Diagnostics: CBC CMP PT/INR troponin chest x-ray EKG Therapeutics: IV O2 monitor aspirin 324 mg by mouth Nitropaste 1 inch chest wall Impression: #1 chest pain #2 history of hypertension Definitive disposition and diagnosis as appropriate pending reevaluation and review of above. - Related Data Allergies Allergy/AdvReac Type Severity Reaction Status Date / Time No Known Allergies Allergy Verified 01/08/17 19:31 Home Meds: Home Meds Aspirin [Gissel Chewable Aspirin] 81 mg PO DAILY 12/01/13 [History] Valsartan 320 mg PO DAILY 08/27/14 [History] Metoprolol Succinate [Toprol XL] 100 mg PO DAILY tab.er 02/25/16 [Rx] Nitroglycerin [IJP: Nitroglycerin] 0.4 mg SL ASDIRECTED 02/25/16 [History] Spironolactone [Aldactone] 25 mg PO DAILY tablet 02/25/16 [Rx] metFORMIN [Glucophage XR] 500 mg PO BID #60 tab.er 02/25/16 [Rx] Glimepiride 1 mg PO BIDMEALS 06/13/16 [History] Tamsulosin [Flomax] 0.4 mg PO DAILY 06/13/16 [History] Celecoxib 100 mg PO ASDIRECTED 01/08/17 [History] cloNIDine [Catapres] 0.1 mg PO ONETIME 01/08/17 [History] Past Medical History HEENT History: Reports: Other (See Below) Other HEENT History: wear glasses Cardiovascular History: Reports: CAD, High Cholesterol, Hypertension Respiratory History: Reports: None Gastrointestinal History: Reports: Colon Polyp, GERD, Other (See Below) Other Gastrointestinal History: bleeding ulcer, acid reflux, beeing w/u for dysphagia states has gallstones Genitourinary History: Reports: None, BPH, Other (See Below) Musculoskeletal History: Reports: Arthritis, Gout Neurological History: Reports: None Psychiatric History: Reports: None Endocrine/Metabolic History: Reports: Diabetes, Type II, Obesity/BMI 30+ Hematologic History: Reports: None Immunologic History: Reports: None Oncologic (Cancer) History: Reports: None Dermatologic History: Reports: None - Infectious Disease History Infectious Disease History: Reports: None - Past Surgical History Head Surgeries/Procedures: Reports: None HEENT Surgical History: Reports: None Other Cardiovascular Surgeries/Procedures: angiogram x2, no stents were placed Respiratory Surgical History: Reports: None GI Surgical History: Reports: Colonoscopy, EGD Male Surgical History: Reports: None Neurological Surgical History: Reports: None Social & Family History - Family History Family Medical History: Noncontributory Cardiac: Reports: Hypertension, [place] - Tobacco Use Smoking Status *Q: Never Smoker Second Hand Smoke Exposure: No - Caffeine Use Caffeine Use: Reports: Coffee, Tea, Other Other Caffeine Use: De caffenated Caffeine Use Comment: decaffeineted coffee - Alcohol Use Days Per Week of Alcohol Use: 0 - Recreational Drug Use Recreational Drug Use: No Drug Use in Last 12 Months: No - Living Situation & Occupation Living situation: Reports: ED ROS GENERAL - Review of Systems Review Of Systems: ROS reveals no pertinent complaints other than HPI. ED EXAM, GENERAL - Physical Exam Exam: See Below (See dictation) Course - Vital Signs Text/Narrative:: All diagnostics reviewed with patient I discussed with him admission for observation patient declines and requests discharge home states he feels good will follow up closely with his private medical doctor and cosmetology educator he's return as needed as discussed with him his current medications Last Recorded V/S: Last Vital Signs Temp 36.7 C 01/08/17 19:20 Pulse 77 01/08/17 20:39 Resp 18 01/08/17 20:39 BP 125/69 01/08/17 20:39 Pulse Ox 98 01/08/17 20:39 - Orders/Labs/Meds Orders: Active Orders 24 hr Category Date Time Status Cardiac Monitoring [RC] . DIRECTED Care 01/08/17 19:33 Active EKG Documentation Completion [RC] STAT Care 01/08/17 19:33 Active Oxygen Therapy, ED [RC] ASDIRECTED Care 01/08/17 19:33 Active Pulse Oximetry [RC] ASDIRECTED Care 01/08/17 19:33 Active Chest 1V Frontal [CR] Stat Exams 01/08/17 19:33 Taken UA W/MICROSCOPIC [URIN] Stat Lab 01/08/17 20:30 Received Sodium Chloride 0.9% [Normal Saline] 1,000 ml Med 01/08/17 19:45 Active IV STAT Sodium Chloride 0.9% [Saline Flush] Med 01/08/17 19:33 Active 10 ml FLUSH ASDIRECTED PRN Sodium Chloride 0.9% [Saline Flush] Med 01/08/17 19:33 Active 2.5 ml FLUSH ASDIRECTED PRN Saline Lock Insert [OM.PC] Stat Oth 01/08/17 19:33 Ordered Medication Orders Sodium Chloride (Normal Saline) 1,000 mls @ 125 mls/hr IV STAT THOMPSON Last Admin: 01/08/17 19:48 Dose: 125 mls/hr Sodium Chloride (Saline Flush) 10 ml FLUSH ASDIRECTED PRN PRN Reason: Keep Vein Open Sodium Chloride (Saline Flush) 2.5 ml FLUSH ASDIRECTED PRN PRN Reason: Keep Vein Open Labs: Laboratory Tests 01/08/17 01/08/17 01/08/17 Range/Units 19:10 19:10 19:10 WBC 6.33 (4.0-11.0) K/uL RBC 5.06 (4.50-5.90) M/uL Hgb 13.7 (13.0-17.0) g/dL Hct 42.1 (38.0-50.0) % MCV 83.2 (80.0-98.0) fL MCH 27.1 (27.0-32.0) pg MCHC 32.5 (31.0-37.0) g/dL RDW Std Deviation 40.2 (28.0-62.0) fl RDW Coeff of Vanna 13 (11.0-15.0) % Plt Count 275 (150-400) K/uL MPV 9.30 (7.40-12.00) fL Neut % (Auto) 50.4 (48.0-80.0) % Lymph % (Auto) 37.1 (16.0-40.0) % [place] % (Auto) 9.2 (0.0-15.0) % Eos % (Auto) 2.7 (0.0-7.0) % Baso % (Auto) 0.6 (0.0-1.5) % Neut # (Auto) 3.2 (1.4-5.7) K/uL Lymph # (Auto) 2.4 (0.6-2.4) K/uL [place] # (Auto) 0.6 (0.0-0.8) K/uL Eos # (Auto) 0.2 (0.0-0.7) K/uL Baso # (Auto) 0.0 (0.0-0.1) K/uL Nucleated RBC % 0.0 /100WBC Nucleated RBCs # 0 K/uL INR 1.07 (0.86-1.11) Sodium 140 (136-146) mmol/L Potassium 3.8 (3.5-5.1) mmol/L Chloride 106 (98-110) mmol/L Carbon Dioxide 26 (21-31) mmol/L BUN 14 (6.0-23.0) mg/dL Creatinine 1.3 (0.6-1.5) mg/dL Est Cr Clr Drug Dosing 51.55 mL/min Estimated GFR (MDRD) > 60.0 ml/min Glucose 133 H (60-110) mg/dL Calcium 9.0 (8.8-10.8) mg/dL Total Bilirubin 0.3 (0.1-1.5) mg/dL AST 38 (5-40) IU/L ALT 32 (8-54) IU/L Alkaline Phosphatase 77 (40-150) Troponin I < 0.10 (0.0-0.29) NG/ML B-Natriuretic Peptide (<100) PG/ML Total Protein 8.5 H (6.0-8.0) g/dL Albumin 4.0 (3.4-4.8) g/dL Globulin 4.5 H (2.0-3.5) g/dL Albumin/Globulin Ratio 0.9 L (1.3-2.8) 01/08/17 Range/Units 19:10 WBC (4.0-11.0) K/uL RBC (4.50-5.90) M/uL Hgb (13.0-17.0) g/dL Hct (38.0-50.0) % MCV (80.0-98.0) fL MCH (27.0-32.0) pg MCHC (31.0-37.0) g/dL RDW Std Deviation (28.0-62.0) fl RDW Coeff of Vanna (11.0-15.0) % Plt Count (150-400) K/uL MPV (7.40-12.00) fL Neut % (Auto) (48.0-80.0) % Lymph % (Auto) (16.0-40.0) % [place] % (Auto) (0.0-15.0) % Eos % (Auto) (0.0-7.0) % Baso % (Auto) (0.0-1.5) % Neut # (Auto) (1.4-5.7) K/uL Lymph # (Auto) (0.6-2.4) K/uL [place] # (Auto) (0.0-0.8) K/uL Eos # (Auto) (0.0-0.7) K/uL Baso # (Auto) (0.0-0.1) K/uL Nucleated RBC % /100WBC Nucleated RBCs # K/uL INR (0.86-1.11) Sodium (136-146) mmol/L Potassium (3.5-5.1) mmol/L Chloride (98-110) mmol/L Carbon Dioxide (21-31) mmol/L BUN (6.0-23.0) mg/dL Creatinine (0.6-1.5) mg/dL Est Cr Clr Drug Dosing mL/min Estimated GFR (MDRD) ml/min Glucose (60-110) mg/dL Calcium (8.8-10.8) mg/dL Total Bilirubin (0.1-1.5) mg/dL AST (5-40) IU/L ALT (8-54) IU/L Alkaline Phosphatase (40-150) Troponin I (0.0-0.29) NG/ML B-Natriuretic Peptide 47 (<100) PG/ML Total Protein (6.0-8.0) g/dL Albumin (3.4-4.8) g/dL Globulin (2.0-3.5) g/dL Albumin/Globulin Ratio (1.3-2.8) Meds: Medications Generic Name Dose Route Start Last Admin Trade Name Freq PRN Reason Stop Dose Admin Sodium Chloride 1,000 mls @ 125 mls/hr 01/08/17 19:45 01/08/17 19:48 Normal Saline IV 125 mls/hr STAT THOMPSON Administration Sodium Chloride 10 ml 01/08/17 19:33 Saline Flush FLUSH ASDIRECTED PRN Keep Vein Open Sodium Chloride 2.5 ml 01/08/17 19:33 Saline Flush FLUSH ASDIRECTED PRN Keep Vein Open Discontinued Medications Generic Name Dose Route Start Last Admin Trade Name Freq PRN Reason Stop Dose Admin Aspirin 324 mg 01/08/17 19:33 01/08/17 19:48 Aspirin PO 01/08/17 19:34 324 mg ONETIME ONE Administration Nitroglycerin 1 gm 01/08/17 19:33 01/08/17 19:48 Nitro-Bid 2% TOP 01/08/17 19:34 1 gm ONETIME ONE Administration Departure - Departure Time of Disposition: 20:46 Disposition: Home, Self-Care 01 Condition: Good Clinical Impression: Chest pain Hypertension Qualifiers: Hypertension type: essential hypertension Qualified Code(s): I10 - Essential ( primary) hypertension Referrals: PCP,None [Primary Care Provider] - Forms: ED Department Discharge Additional Instructions: The following information is given to patients seen in the emergency department who are being discharged to home. This information is to outline your options for follow-up care. We provide all patients seen in our emergency department with a follow-up referral. The need for follow-up, as well as the timing and circumstances, are variable depending upon the specifics of your emergency department visit. If you don't have a primary care physician on staff, we will provide you with a referral. We always advise you to contact your personal physician following an emergency department visit to inform them of the circumstance of the visit and for follow-up with them and/or the need for any referrals to a consulting specialist. The emergency department will also refer you to a specialist when appropriate. This referral assures that you have the opportunity for followup care with a specialist. All of these measure are taken in an effort to provide you with optimal care, which includes your followup. Under all circumstances we always encourage you to contact your private physician who remains a resource for coordinating your care. When calling for followup care, please make the office aware that this follow-up is from your recent emergency room visit. If for any reason you are refused follow-up, please contact the [facility] emergency department at and asked to speak to the emergency department charge nurse. Follow-up primary medical doctor and cardiology as discussed ROSA continue current medications return as needed as discussed - My Orders Last 24 Hours: My Active Orders 01/08/17 19:33 Cardiac Monitoring [RC] . DIRECTED EKG Documentation Completion [RC] STAT Oxygen Therapy, ED [RC] ASDIRECTED Pulse Oximetry [RC] ASDIRECTED Chest 1V Frontal [CR] Stat Sodium Chloride 0.9% [Saline Flush] 10 ml FLUSH ASDIRECTED PRN Sodium Chloride 0.9% [Saline Flush] 2.5 ml FLUSH ASDIRECTED PRN Saline Lock Insert [OM.PC] Stat 01/08/17 19:45 Sodium Chloride 0.9% [Normal Saline] 1,000 ml IV STAT 01/08/17 20:30 UA W/MICROSCOPIC [URIN] Stat - Assessment/Plan Last 24 Hours: My Active Orders 01/08/17 19:33 Cardiac Monitoring [RC] . DIRECTED EKG Documentation Completion [RC] STAT Oxygen Therapy, ED [RC] ASDIRECTED Pulse Oximetry [RC] ASDIRECTED Chest 1V Frontal [CR] Stat Sodium Chloride 0.9% [Saline Flush] 10 ml FLUSH ASDIRECTED PRN Sodium Chloride 0.9% [Saline Flush] 2.5 ml FLUSH ASDIRECTED PRN Saline Lock Insert [OM.PC] Stat 01/08/17 19:45 Sodium Chloride 0.9% [Normal Saline] 1,000 ml IV STAT 01/08/17 20:30 UA W/MICROSCOPIC [URIN] Stat
[2017-01-08] MEDS ORDERED: Sodium Chloride 0.9% 1,000 ML IV SCH (19:45)
[2017-01-08 20:03] LABS: CHLORIDE,CL 106 mmol/L (98-110); SODIUM,NA 140 mmol/L (136-146)
[2017-01-08 21:16] VITALS: BP 123/65
--- NOTE | 2017-01-09 11:02 | CR ---
EXAM DATE: 01/08/17 PATIENT'S AGE: 67 Patient: CHRISTIAN FITCH Facility: [place], [place] Site . Site : 1950 Study: XRay Chest [id number] 8:06:50 PM Ordering Physician: Doctor Singh Final Report: INDICATION: pain TECHNIQUE: Chest 1 view COMPARISON: June 14, 2016 FINDINGS: Cardiovascular and mediastinum: Heart size and vasculature are normal in caliber and appearance aside from atherosclerotic disease. Mediastinum is within normal limits. Lungs and pleural space: No focal consolidation. No sign of pleural effusion. No pneumothorax. Bones and soft tissues: No significant findings. IMPRESSION: No acute cardiopulmonary disease. Dictated by Michael Serna MD @ 01/08/2017 8:27:50 PM Dictated by: Michael Serna MD @ 01/08/2017 20:27:59 (Electronic Signature) Report Signed by Proxy. [email or web address]
== END 2017-01-08 21:10 | disposition home or self-care (01) ==
LOC: MW.ED 19:20
DX: R07.2 Precordial pain (principal); E11.9 Type 2 diabetes mellitus without complications; I10 Essential (primary) hypertension; Z79.82 Long term (current) use of aspirin; Z79.84 Long term (current) use of oral hypoglycemic drugs; Z79.899 Other long term (current) drug therapy
CPT/HCPCS: 71010; 80053; 81001; 83880; 84484; 85025; 85610; 93005; 96360; 99284; A9270; J7040; 99283

== ENCOUNTER 2017-04-12 17:51 | Emergency (ER) | payer BC ==
[2017-04-12] MEDS ORDERED: Lidocaine 2% Viscous Solution 15 ML Cup PO ONE (18:42)
[2017-04-12] MEDS ORDERED: Benzocaine 20% Topical Spray UD MUCMEM ONE (18:42)
--- NOTE | 2017-04-12 18:45 | EDM.PDOC ---
ED HPI GENERAL MEDICAL PROBLEM - General Chief Complaint: ENT Problem Stated Complaint: STUFFING NOSE AND EAR DISCOMFORT Time Seen by Provider: 04/12/17 18:30 Source of Information: Reports: Patient History Limitations: Reports: No Limitations - History of Present Illness INITIAL COMMENTS - FREE TEXT/NARRATIVE: HISTORY AND PHYSICAL: History of present illness: [Patient comes to the emergency room complaining of right cheek pain and swelling. Symptoms began suddenly this morning and have gradually worsened throughout the day. Pain extends from his right upper lip into his right ear. He denies any dental pain, abscesses or bad teeth to his upper jaw. He has a history of tooth decay to front incisor. No fever or chills. No chest pain shortness of breath or difficulty breathing. He's had no nausea vomiting or abdominal pain. He describes the pain as a throbbing sensation to his right face. No blurred vision or double vision. No drainage from his ear, no sore throat or runny nose. Admits to some swelling on the right side of his neck.] Review of systems: As per history of present illness and below otherwise all systems reviewed and negative. Past medical history: As per history of present illness and as reviewed below otherwise noncontributory. Surgical history: As per history of present illness and as reviewed below otherwise noncontributory. Social history: No reported history of drug or alcohol abuse. Family history: As per history of present illness and as reviewed below otherwise noncontributory. Physical exam: HEENT: Atraumatic, normocephalic. Wears glasses. TMs are pearly campos and without erythema bilaterally. No nasal discharge noted. Swelling is appreciated over his right upper lip and cheek. Is tender with palpation. Tooth #7 shows black decay at the gumline, with bright erythema and swelling extending into the gum tissue. Is tender with palpation. Lungs: Clear to auscultation, breath sounds equal bilaterally. Heart: S1S2, regular rate and rhythm. Extremities: Atraumatic, full range of motion. Neurovascular unremarkable. Neuro: Awake, alert, oriented. Motor and sensory unremarkable throughout. Exam nonfocal. Impression: [Dental abscess] Plan: [Rx written for amoxicillin 500mg (#32) si po now, then 1 po TID x 10 days 0 RF's, follow up with dentist next week. Tylenol alternating with ibuprofen. Dental balls given to patient. She verbalized understanding of today's discussion.] Definitive disposition and diagnosis as appropriate pending reevaluation and review of above. Right Face Pain Score (Numeric/FACES): 5 - Related Data Allergies Allergy/AdvReac Type Severity Reaction Status Date / Time No Known Allergies Allergy Verified 04/12/17 18:19 Home Meds: Home Meds Aspirin [Gissel Chewable Aspirin] 81 mg PO DAILY 12/01/13 [History] Valsartan 320 mg PO DAILY 08/27/14 [History] Metoprolol Succinate [Toprol XL] 100 mg PO DAILY tab.er 02/25/16 [Rx] Nitroglycerin [IJP: Nitroglycerin] 0.4 mg SL ASDIRECTED 02/25/16 [History] Spironolactone [Aldactone] 25 mg PO DAILY tablet 02/25/16 [Rx] metFORMIN [Glucophage XR] 500 mg PO BID #60 tab.er 02/25/16 [Rx] Glimepiride 1 mg PO BIDMEALS 06/13/16 [History] Tamsulosin [Flomax] 0.4 mg PO DAILY 06/13/16 [History] Celecoxib 100 mg PO BID 01/08/17 [History] cloNIDine [Catapres] 0.1 mg PO ONETIME 01/08/17 [History] Past Medical History HEENT History: Reports: Other (See Below) Other HEENT History: wear glasses Cardiovascular History: Reports: CAD, High Cholesterol, Hypertension Respiratory History: Reports: None Gastrointestinal History: Reports: Colon Polyp, GERD, Other (See Below) Other Gastrointestinal History: bleeding ulcer, acid reflux, beeing w/u for dysphagia states has gallstones Genitourinary History: Reports: None, BPH, Other (See Below) Musculoskeletal History: Reports: Arthritis, Gout Neurological History: Reports: None Psychiatric History: Reports: None Endocrine/Metabolic History: Reports: Diabetes, Type II, Obesity/BMI 30+ Hematologic History: Reports: None Immunologic History: Reports: None Oncologic (Cancer) History: Reports: None Dermatologic History: Reports: None - Infectious Disease History Infectious Disease History: Reports: None - Past Surgical History Head Surgeries/Procedures: Reports: None HEENT Surgical History: Reports: None Cardiovascular Surgical History: Reports: None Other Cardiovascular Surgeries/Procedures: angiogram x2, no stents were placed Respiratory Surgical History: Reports: None GI Surgical History: Reports: Colonoscopy, EGD Male Surgical History: Reports: None Neurological Surgical History: Reports: None Social & Family History - Family History Family Medical History: Noncontributory Cardiac: Reports: Hypertension, [place] - Tobacco Use Smoking Status *Q: Never Smoker Second Hand Smoke Exposure: No - Caffeine Use Caffeine Use: Reports: None Other Caffeine Use: De caffenated Caffeine Use Comment: decaffeineted coffee - Alcohol Use Days Per Week of Alcohol Use: 0 - Recreational Drug Use Recreational Drug Use: No Drug Use in Last 12 Months: No - Living Situation & Occupation Living situation: Reports: ED ROS ENT - Review of Systems Review Of Systems: ROS reveals no pertinent complaints other than HPI. ED EXAM, ENT - Physical Exam Exam: See Below Course - Vital Signs Last Recorded V/S: Last Vital Signs Temp 99.4 F 04/12/17 19:25 Pulse 69 04/12/17 19:25 Resp 16 04/12/17 19:25 BP 118/63 04/12/17 19:25 Pulse Ox 98 04/12/17 19:25 - Orders/Labs/Meds Meds: Medications Discontinued Medications Generic Name Dose Route Start Last Admin Trade Name Freq PRN Reason Stop Dose Admin Benzocaine 2 each 04/12/17 18:42 04/12/17 19:23 Hurricaine One 20% MUCMEM 04/12/17 18:43 2 each ONETIME ONE Administration Lidocaine HCl 15 ml 04/12/17 18:42 04/12/17 19:23 Xylocaine 2% Viscous PO 04/12/17 18:43 15 ml ONETIME ONE Administration Departure - Departure Time of Disposition: 18:45 Disposition: Home, Self-Care 01 Condition: Good Clinical Impression: Dental abscess - Discharge Information Instructions: Dental Abscess, [id number] Referrals: PCP,None [Primary Care Provider] - Forms: ED Department Discharge Additional Instructions: The following information is given to patients seen in the emergency department who are being discharged to home. This information is to outline your options for follow-up care. We provide all patients seen in our emergency department with a follow-up referral. The need for follow-up, as well as the timing and circumstances, are variable depending upon the specifics of your emergency department visit. If you don't have a primary care physician on staff, we will provide you with a referral. We always advise you to contact your personal physician following an emergency department visit to inform them of the circumstance of the visit and for follow-up with them and/or the need for any referrals to a consulting specialist. The emergency department will also refer you to a specialist when appropriate. This referral assures that you have the opportunity for follow-up care with a specialist. All of these measure are taken in an effort to provide you with optimal care, which includes your follow-up. Under all circumstances we always encourage you to contact your private physician who remains a resource for coordinating your care. When calling for follow-up care, please make the office aware that this follow-up is from your recent emergency room visit. If for any reason you are refused follow-up, please contact the [facility] emergency department at and asked to speak to the emergency department charge nurse. Follow-up with your dentist early next week. Take antibiotics as prescribed. Use dental balls, Tylenol and ibuprofen as needed for discomfort. Return to ER as needed as discussed.
[2017-04-12 19:40] VITALS: BP 118/63
== END 2017-04-12 19:25 | disposition home or self-care (01) ==
LOC: MW.ED 17:51
DX: K04.7 Periapical abscess without sinus (principal); I10 Essential (primary) hypertension; I25.10 Atherosclerotic heart disease of native coronary artery without angina pectoris; E78.00 Pure hypercholesterolemia, unspecified; K21.9 Gastro-esophageal reflux disease without esophagitis; E11.9 Type 2 diabetes mellitus without complications; Z95.5 Presence of coronary angioplasty implant and graft; Z79.82 Long term (current) use of aspirin; Z79.84 Long term (current) use of oral hypoglycemic drugs; Z79.899 Other long term (current) drug therapy
CPT/HCPCS: 99283; A9270; 99282

== ENCOUNTER 2017-04-26 18:16 | Emergency (ER) | payer BC ==
--- NOTE | 2017-04-26 19:18 | EDM.PDOC ---
ED HPI GENERAL MEDICAL PROBLEM - General Chief Complaint: ENT Problem Stated Complaint: R EAR PAIN Time Seen by Provider: 04/26/17 18:36 Source of Information: Reports: Patient History Limitations: Reports: No Limitations - History of Present Illness INITIAL COMMENTS - FREE TEXT/NARRATIVE: HISTORY AND PHYSICAL: History of present illness: Patient is a 67-year-old male who presents to the emergency room with complaints of right ear pain and difficulty hearing April 12, 2017. T had recently been on a round of antibiotics for this discomfort but has not had any improvement with the pain. Denies any drainage from the ear. He has had no previous problems with cerumen. Denies fever, chills, chest pain or shortness of breath. Denies any GI symptoms or complaints. Review of systems: As per history of present illness and below otherwise all systems reviewed and negative. Past medical history: As per history of present illness and as reviewed below otherwise noncontributory. Surgical history: As per history of present illness and as reviewed below otherwise noncontributory. Social history: No reported history of drug or alcohol abuse. Family history: As per history of present illness and as reviewed below otherwise noncontributory. Physical exam: General: Well-developed and well-nourished 67-year-old -[place] male. Alert and oriented. HEENT: Atraumatic, normocephalic, pupils reactive, negative for conjunctival pallor or scleral icterus, mucous membranes moist, able to visualize the right tympanic membrane due to cerumen, left TM normal, throat clear, neck supple, nontender, trachea midline. Lungs: Clear to auscultation, breath sounds equal bilaterally, chest nontender. Heart: S1S2, regular, negative for clicks, rubs, or JVD. Abdomen: Soft, nondistended, nontender. Negative for masses or hepatosplenomegaly. Negative for costovertebral tenderness. Pelvis: Stable nontender. Genitourinary: Deferred. Rectal: Deferred. Extremities: Atraumatic, negative for cords or calf pain. Neurovascular unremarkable. Neuro: Awake, alert, oriented. Cranial nerves II through XII unremarkable. Cerebellum unremarkable. Motor and sensory unremarkable throughout. Exam nonfocal. Diagnostics: [] Therapeutics: Ear irrigation Impression: Otitis media Otitis externa Cerumen Impaction Plan: 1. Avoid putting Q-tips in the ear. Take the oral antibiotic as directed. The external drop twice daily in the right ear 2. He is follow-up with the logistics research engineer, the phone number has been provided for you. Return to the ED as needed and as discussed. Definitive disposition and diagnosis as appropriate pending reevaluation and review of above. right ear Pain Score (Numeric/FACES): 5 - Related Data Allergies Allergy/AdvReac Type Severity Reaction Status Date / Time No Known Allergies Allergy Verified 04/12/17 18:19 Home Meds: Home Meds Aspirin [Gissel Chewable Aspirin] 81 mg PO DAILY 12/01/13 [History] Valsartan 320 mg PO DAILY 08/27/14 [History] Metoprolol Succinate [Toprol XL] 100 mg PO DAILY tab.er 02/25/16 [Rx] Nitroglycerin [IJP: Nitroglycerin] 0.4 mg SL ASDIRECTED 02/25/16 [History] Spironolactone [Aldactone] 25 mg PO DAILY tablet 02/25/16 [Rx] metFORMIN [Glucophage XR] 500 mg PO BID #60 tab.er 02/25/16 [Rx] Glimepiride 1 mg PO BIDMEALS 06/13/16 [History] Tamsulosin [Flomax] 0.4 mg PO DAILY 06/13/16 [History] Celecoxib 100 mg PO BID 01/08/17 [History] cloNIDine [Catapres] 0.1 mg PO ONETIME 01/08/17 [History] Amoxicillin/Clavulanate K [Augmentin 875-125 MG] 1 tab PO BID 10 Days #20 tablet 04/26/17 [Rx] Ciprofloxacin [Ciprofloxacin 0.3% [facility] Soln] 4 drop OP BID 7 Days #1 bottle [Rx] Past Medical History HEENT History: Reports: Other (See Below) Other HEENT History: wear glasses Cardiovascular History: Reports: CAD, High Cholesterol, Hypertension Respiratory History: Reports: None Gastrointestinal History: Reports: Colon Polyp, GERD, Other (See Below) Other Gastrointestinal History: bleeding ulcer, acid reflux, beeing w/u for dysphagia states has gallstones Genitourinary History: Reports: None, BPH, Other (See Below) Musculoskeletal History: Reports: Arthritis, Gout Neurological History: Reports: None Psychiatric History: Reports: None Endocrine/Metabolic History: Reports: Diabetes, Type II, Obesity/BMI 30+ Hematologic History: Reports: None Immunologic History: Reports: None Oncologic (Cancer) History: Reports: None Dermatologic History: Reports: None - Infectious Disease History Infectious Disease History: Reports: None - Past Surgical History Head Surgeries/Procedures: Reports: None HEENT Surgical History: Reports: None Cardiovascular Surgical History: Reports: None Other Cardiovascular Surgeries/Procedures: angiogram x2, no stents were placed Respiratory Surgical History: Reports: None GI Surgical History: Reports: Colonoscopy, EGD Male Surgical History: Reports: None Neurological Surgical History: Reports: None Social & Family History - Family History Family Medical History: Noncontributory Cardiac: Reports: Hypertension, [place] - Tobacco Use Smoking Status *Q: Never Smoker Second Hand Smoke Exposure: No - Caffeine Use Caffeine Use: Reports: None Other Caffeine Use: De caffenated Caffeine Use Comment: decaffeineted coffee - Alcohol Use Days Per Week of Alcohol Use: 0 - Recreational Drug Use Recreational Drug Use: No Drug Use in Last 12 Months: No - Living Situation & Occupation Living situation: Reports: ED ROS ENT - Review of Systems Review Of Systems: ROS reveals no pertinent complaints other than HPI. ED EXAM, ENT - Physical Exam Exam: See Below (See dictation) Course - Vital Signs Last Recorded V/S: Last Vital Signs Temp 97.7 F 04/26/17 20:00 Pulse 61 04/26/17 20:00 Resp 18 04/26/17 20:00 BP 102/64 04/26/17 20:00 Pulse Ox 98 04/26/17 20:00 Departure - Departure Time of Disposition: 19:50 Disposition: Home, Self-Care 01 Clinical Impression: Impacted cerumen, right ear Otitis externa Qualifiers: Otitis externa type: unspecified type Chronicity: acute Laterality: right Qualified Code(s): H60.501 - Unspecified acute noninfective otitis externa, right ear Otitis media Qualifiers: Otitis media type: suppurative Chronicity: unspecified Laterality: right Qualified Code(s): H66.41 - Suppurative otitis media, unspecified, right ear - Discharge Information Prescriptions: Amoxicillin/Clavulanate K [Augmentin 875-125 MG] 1 tab PO BID 10 Days #20 tablet Ciprofloxacin [Ciprofloxacin 0.3% Ophth Soln] 4 drop OP BID 7 Days #1 bottle Instructions: Otitis Externa, [id number], Otitis Media, Adult, [id number] Referrals: José Miguel Heredia MD [Primary Care Provider] - Forms: ED Department Discharge Additional Instructions: My general discharge The following information is given to patients seen in the emergency department who are being discharged to home. This information is to outline your options for follow-up care. We provide all patients seen in our emergency department with a follow-up referral. The need for follow-up, as well as the timing and circumstances, are variable depending upon the specifics of your emergency department visit. If you don't have a primary care physician on staff, we will provide you with a referral. We always advise you to contact your personal physician following an emergency department visit to inform them of the circumstance of the visit and for follow-up with them and/or the need for any referrals to a consulting specialist. The emergency department will also refer you to a specialist when appropriate. This referral assures that you have the opportunity for follow-up care with a specialist. All of these measure are taken in an effort to provide you with optimal care, which includes your follow-up. Under all circumstances we always encourage you to contact your private physician who remains a resource for coordinating your care. When calling for follow-up care, please make the office aware that this follow-up is from your recent emergency room visit. If for any reason you are refused follow-up, please contact the [facility] Emergency Department at and asked to speak to the emergency department charge nurse. [facility] Specialty Care - ENT [address] [place] [phone] 1. Avoid putting Q-tips in the ear. Take the oral antibiotic as directed. The external drop twice daily in the right ear 2. Please follow-up with the logistics research engineer, Dr LUU, the phone number has been provided for you. Return to the ED as needed and as discussed.
[2017-04-26 20:51] VITALS: BP 102/64
== END 2017-04-26 20:00 | disposition home or self-care (01) ==
LOC: MW.ED 18:16
DX: H61.21 Impacted cerumen, right ear (principal); H60.501 Unspecified acute noninfective otitis externa, right ear; H66.41 Suppurative otitis media, unspecified, right ear; E78.00 Pure hypercholesterolemia, unspecified; I10 Essential (primary) hypertension; E11.9 Type 2 diabetes mellitus without complications; Z79.899 Other long term (current) drug therapy; Z79.82 Long term (current) use of aspirin; Z79.84 Long term (current) use of oral hypoglycemic drugs
CPT/HCPCS: 69209; 99282

== ENCOUNTER 2017-07-18 06:45 | Emergency (ER) | payer BC ==
--- NOTE | 2017-07-18 07:13 | EDM.PDOC ---
ED HPI GENERAL MEDICAL PROBLEM - General Chief Complaint: Cardiovascular Problem Stated Complaint: BLOOD PRESSURE IS HIGH Time Seen by Provider: 07/18/17 07:11 Source of Information: Reports: Patient - History of Present Illness INITIAL COMMENTS - FREE TEXT/NARRATIVE: HISTORY AND PHYSICAL: History of present illness: []Patient awoke from sleep today and checked his blood pressure is in the 160s, at approximately between 5 and 6 AM, he had not taken his medications and he states he was dizzy at that time. After taking his blood pressure he did take his medication appears to be much improved already shortly after 7 AM patient is asymptomatic at current No fever nausea vomiting diarrhea constipation chest pain shortness breath headache dizziness palpitation no bowel or urine symptoms He has been following with Dr. Yen for his hypertension as well as Dr. heredia Review of systems: As per history of present illness and below otherwise all systems reviewed and negative. Past medical history: As per history of present illness and as reviewed below otherwise noncontributory. Surgical history: As per history of present illness and as reviewed below otherwise noncontributory. Social history: No reported history of drug or alcohol abuse. Family history: As per history of present illness and as reviewed below otherwise noncontributory. Physical exam: HEENT: Atraumatic, normocephalic, pupils reactive, negative for conjunctival pallor or scleral icterus, mucous membranes moist, throat clear, neck supple, nontender, trachea midline. Lungs: Clear to auscultation, breath sounds equal bilaterally, chest nontender. Heart: S1S2, regular, negative for clicks, rubs, or JVD. Abdomen: Soft, nondistended, nontender. Negative for masses or hepatosplenomegaly. Negative for costovertebral tenderness. Pelvis: Stable nontender. Genitourinary: Deferred. Rectal: Deferred. Extremities: Atraumatic, negative for cords or calf pain. Neurovascular unremarkable. Neuro: Awake, alert, oriented. Cranial nerves II through XII unremarkable. Cerebellum unremarkable. Motor and sensory unremarkable throughout. Exam nonfocal. Diagnostics: [CBC CMP troponin EKG Chest 1 view ] Therapeutics: [None] Impression: [ dizziness resolved Hypertension controlled with medication Chronic history of baseline ] Definitive disposition and diagnosis as appropriate pending reevaluation and review of above. - Related Data Allergies Allergy/AdvReac Type Severity Reaction Status Date / Time No Known Allergies Allergy Verified 07/18/17 06:59 Home Meds: Home Meds Aspirin [Gissel Chewable Aspirin] 81 mg PO DAILY 12/01/13 [History] Valsartan 320 mg PO DAILY 08/27/14 [History] Metoprolol Succinate [Toprol XL] 100 mg PO DAILY tab.er 02/25/16 [Rx] Nitroglycerin [IJP: Nitroglycerin] 0.4 mg SL ASDIRECTED 02/25/16 [History] Spironolactone [Aldactone] 25 mg PO DAILY tablet 02/25/16 [Rx] metFORMIN [Glucophage XR] 500 mg PO BID #60 tab.er 02/25/16 [Rx] Glimepiride 1 mg PO BIDMEALS 06/13/16 [History] Tamsulosin [Flomax] 0.4 mg PO DAILY 06/13/16 [History] Celecoxib 100 mg PO BID PRN 01/08/17 [History] cloNIDine [Catapres] 0.1 mg PO ASDIRECTED 01/08/17 [History] Past Medical History HEENT History: Reports: Impaired Vision, Other (See Below) Other HEENT History: wear glasses Cardiovascular History: Reports: CAD, High Cholesterol, Hypertension Respiratory History: Reports: None Gastrointestinal History: Reports: Colon Polyp, GERD, Other (See Below) Other Gastrointestinal History: bleeding ulcer, acid reflux, beeing w/u for dysphagia states has gallstones Genitourinary History: Reports: BPH, Other (See Below) Musculoskeletal History: Reports: Arthritis, Gout Neurological History: Reports: None Psychiatric History: Reports: None Endocrine/Metabolic History: Reports: Diabetes, Type II, Obesity/BMI 30+ Hematologic History: Reports: None Immunologic History: Reports: None Oncologic (Cancer) History: Reports: None Dermatologic History: Reports: None - Infectious Disease History Infectious Disease History: Reports: None - Past Surgical History Head Surgeries/Procedures: Reports: None HEENT Surgical History: Reports: None Cardiovascular Surgical History: Reports: None Other Cardiovascular Surgeries/Procedures: angiogram x2, no stents were placed Respiratory Surgical History: Reports: None GI Surgical History: Reports: Colonoscopy, EGD Male Surgical History: Reports: None Neurological Surgical History: Reports: None Social & Family History - Family History Family Medical History: Noncontributory Cardiac: Reports: Hypertension, [place] - Tobacco Use Smoking Status *Q: Never Smoker - Caffeine Use Caffeine Use: Reports: Coffee Other Caffeine Use: De caffenated Caffeine Use Comment: 1 CUP DAILY - Recreational Drug Use Recreational Drug Use: No - Living Situation & Occupation Living situation: Reports: ED ROS GENERAL - Review of Systems Review Of Systems: See Below ED EXAM, GENERAL - Physical Exam Exam: See Below Course - Vital Signs Last Recorded V/S: Last Vital Signs Temp 97.5 F 07/18/17 06:45 Pulse 65 07/18/17 08:20 Resp 16 07/18/17 08:20 BP 115/77 07/18/17 08:20 Pulse Ox 95 07/18/17 08:20 - Orders/Labs/Meds Orders: Active Orders 24 hr Category Date Time Status EKG Documentation Completion [RC] STAT Care 07/18/17 07:09 Active Chest 1V Frontal [CR] Stat Exams 07/18/17 07:09 Taken Labs: Laboratory Tests 07/18/17 07/18/17 Range/Units 07:37 07:37 WBC 5.27 (4.0-11.0) K/uL RBC 5.13 (4.50-5.90) M/uL Hgb 13.7 (13.0-17.0) g/dL Hct 42.0 (38.0-50.0) % MCV 81.9 (80.0-98.0) fL MCH 26.7 L (27.0-32.0) pg MCHC 32.6 (31.0-37.0) g/dL RDW Std Deviation 39.6 (28.0-62.0) fl RDW Coeff of Vanna 13 (11.0-15.0) % Plt Count 226 (150-400) K/uL MPV 9.00 (7.40-12.00) fL Neut % (Auto) 50.4 (48.0-80.0) % Lymph % (Auto) 34.2 (16.0-40.0) % [place] % (Auto) 10.2 (0.0-15.0) % Eos % (Auto) 4.4 (0.0-7.0) % Baso % (Auto) 0.8 (0.0-1.5) % Neut # (Auto) 2.7 (1.4-5.7) K/uL Lymph # (Auto) 1.8 (0.6-2.4) K/uL [place] # (Auto) 0.5 (0.0-0.8) K/uL Eos # (Auto) 0.2 (0.0-0.7) K/uL Baso # (Auto) 0.0 (0.0-0.1) K/uL Nucleated RBC % 0.0 /100WBC Nucleated RBCs # 0 K/uL Sodium 139 (136-148) mmol/L Potassium 3.7 (3.5-5.1) mmol/L Chloride 104 (98-107) mmol/L Carbon Dioxide 25.9 (21.0-32.0) mmol/L BUN 14 (7.0-18.0) mg/dL Creatinine 1.2 (0.8-1.3) mg/dL Est Cr Clr Drug Dosing 55.85 mL/min Estimated GFR (MDRD) > 60.0 ml/min Glucose 122 H (74-106) mg/dL Calcium 8.9 (8.5-10.1) mg/dL Total Bilirubin 0.3 (0.2-1.0) mg/dL AST 47 H (15-37) IU/L ALT 42 (14-63) IU/L Alkaline Phosphatase 74 (46-116) U/L Troponin I < 0.050 (0.000-0.056) ng/mL Total Protein 8.0 (6.4-8.2) g/dL Albumin 3.7 (3.4-5.0) g/dL Globulin 4.3 H (2.0-3.5) g/dL Albumin/Globulin Ratio 0.9 L (1.3-2.8) Departure - Departure Time of Disposition: 08:28 Disposition: Home, Self-Care 01 Condition: Good Clinical Impression: Hypertension Qualifiers: Hypertension type: essential hypertension Qualified Code(s): I10 - Essential ( primary) hypertension Referrals: José Miguel Heredia MD [Primary Care Provider] - Forms: ED Department Discharge Additional Instructions: Continue current medications Return if symptoms persist or worsen Follow-up with primary care in 2 weeks The following information is given to patients seen in the emergency department who are being discharged to home. This information is to outline your options for follow-up care. We provide all patients seen in our emergency department with a follow-up referral. The need for follow-up, as well as the timing and circumstances, are variable depending upon the specifics of your emergency department visit. If you don't have a primary care physician on staff, we will provide you with a referral. We always advise you to contact your personal physician following an emergency department visit to inform them of the circumstance of the visit and for follow-up with them and/or the need for any referrals to a consulting specialist. The emergency department will also refer you to a specialist when appropriate. This referral assures that you have the opportunity for follow-up care with a specialist. All of these measure are taken in an effort to provide you with optimal care, which includes your follow-up. Under all circumstances we always encourage you to contact your private physician who remains a resource for coordinating your care. When calling for follow-up care, please make the office aware that this follow-up is from your recent emergency room visit. If for any reason you are refused follow-up, please contact the [facility] emergency department at and asked to speak to the emergency department charge nurse. - My Orders Last 24 Hours: My Active Orders 07/18/17 07:09 EKG Documentation Completion [RC] STAT Chest 1V Frontal [CR] Stat - Assessment/Plan Last 24 Hours: My Active Orders 07/18/17 07:09 EKG Documentation Completion [RC] STAT Chest 1V Frontal [CR] Stat
[2017-07-18 08:08] LABS: CHLORIDE,CL 104 mmol/L (98-107); SODIUM,NA 139 mmol/L (136-148)
[2017-07-18 08:21] VITALS: BP 115/77
--- NOTE | 2017-07-18 10:55 | CR ---
EXAM DATE: 07/18/17 PATIENT'S AGE: 67 Patient: CHRISTIAN FITCH Facility: [place], [place] Site . Site : 1950 Study: XRay Chest [id number]/7/2018 7:37:47 AM Ordering Physician: Vinita Flores Final Report: HISTORY: Pain, high blood pressure. FINDINGS: AP portable chest radiograph demonstrates the cardiac silhouette at the upper limits of normal. Pulmonary vasculature is free of cephalization. No consolidation or pleural effusion is identified. No pneumothorax. IMPRESSION: No acute cardiopulmonary disease. Dictated by Jordana Hodges MD @ 07/18/2017 7:39:06 AM Dictated by: Jordana Hodges MD @ 07/18/2017 07:39:13 (Electronic Signature) Report Signed by Proxy. [facility]
== END 2017-07-18 08:38 | disposition home or self-care (01) ==
LOC: MW.ED 06:45
DX: I10 Essential (primary) hypertension (principal); E11.9 Type 2 diabetes mellitus without complications; E66.9 Obesity, unspecified; Z79.82 Long term (current) use of aspirin; Z79.899 Other long term (current) drug therapy; Z79.84 Long term (current) use of oral hypoglycemic drugs
CPT/HCPCS: 36415; 71045; 71045-26; 80053; 84484; 85025; 93005; 99284-25

== ENCOUNTER 2020-02-05 13:03 | Emergency (ER) | payer OTHER ==
[2020-02-05] MEDS ORDERED: Sodium Chloride 0.9% 10 ML Syringe FLUSH PRN (13:09)
[2020-02-05] MEDS ORDERED: Sodium Chloride 0.9% 2.5 ML Syringe FLUSH PRN (13:09)
--- NOTE | 2020-02-05 13:15 | EDM.PDOC ---
ED HPI GENERAL MEDICAL PROBLEM - General Chief Complaint: General Stated Complaint: HIGH BP, DIZZY Time Seen by Provider: 02/05/20 13:03 Source of Information: Reports: Patient History Limitations: Reports: No Limitations - History of Present Illness INITIAL COMMENTS - FREE TEXT/NARRATIVE: HISTORY AND PHYSICAL: History of present illness: Patient is a 70-year-old male who presents to the emergency room with concerns of his blood pressure being elevated and a brief episode of feeling unsteady on his feet. He states he checked his blood pressure, as he usually does in the mo rning and noticed his reading was high. He does not recall what the blood pressure reading was but believes the bottom number was 90. He states shortly after he felt slightly unsteady on his feet and had to sit down. This resolved within a few minutes. He did not pass out or blackout. He decided to come to the emergency room for evaluation of his hypertension. He does take medication on a daily basis, compliant. Patient denies any fever, chills, headache, change in vision, syncope or near syncope. Denies any chest pain, back pain, shortness of breath or cough. Denies any GI or symptoms. Patient has been eating and drinking appropriately. Review of systems: As per history of present illness and below otherwise all systems reviewed and negative. Past medical history: As per history of present illness and as reviewed below otherwise noncontributory. Surgical history: As per history of present illness and as reviewed below otherwise noncontributory. Social history: See social history for further information Family history: As per history of present illness and as reviewed below otherwise noncontributory. Physical exam: General: Well developed and well nourished 70 year old black male. Alert and orientated x 3. Nontoxic in appearance and in no acute distress. Vital signs are stable and have been reviewed by me. Nursing notes were reviewed. HEENT: Atraumatic, normocephalic, pupils equal and reactive bilaterally, negative for conjunctival pallor or scleral icterus, mucous membranes moist, TMs normal bilaterally, throat clear, neck supple, nontender, trachea midline. No drooling or trismus noted. No meningeal signs. No hot potato voice noted. Lungs: Clear to auscultation, breath sounds equal bilaterally, chest nontender. Normal work of breathing, no accessory muscles used. Heart: S1S2, regular rate and rhythm without overt murmur Abdomen: Soft, nondistended, nontender. Negative for masses or costovertebral tenderness. Skin: Intact, warm, dry. No lesions or rashes noted. Hematologic: No petechiae or purpra. Mucosa appropriate color and normal nail bed color and refill. Extremities: Atraumatic, moves all extremities per self without difficulty or de ficits, negative for cords or calf pain. Neurovascular unremarkable. Neuro: Awake, alert, oriented. Cranial nerves II through XII unremarkable. Cerebellum unremarkable. Motor and sensory unremarkable throughout. Exam nonfocal. Psychiatric: Mood and affect are appropriate. Normal thought process. Answering questions appropriately. Notes: Chest x-ray is unremarkable. EKG shows sinus rhythm with a rate of 86. No concern for STEMI. Lab work is unremarkable. Patient has been asymptomatic since he has been here. His vital signs have been stable. I have talked with the patient about today's findings, in addition to providing specific details for plan of care. Reassessment at the time of disposition demonstrates that the patient is in no acute distress. The patient is stable for discharge, counseling was provided and we discussed in great detail signs and symptoms that would prompt them to return to the Emergency Department. Medication, follow up and supportive care measures were reviewed and discussed. Voices understanding and is agreeable to plan of care. Denies any further questions or concerns at this time. Diagnostics: CBC, CMP, Troponin, EKG, CXR, Orthostatic Vital Signs Therapeutics: None Prescription: None Impression: Dizziness Plan: 1. Merry Emani and Happy Holidays Jose Antonio. Today your lab work, EKG and chest x-ray are within normal limits. Your blood pressure was slightly elevated although not enough that we would adjust your medications. You can continue to monitor your blood pressure and follow-up with your primary care provider if you feel that it continues to be high. 2. Take your home medications as directed. Make sure you are drinking plenty of fluids. 3. We encourage you to follow up with your primary care provider and/or recommended specialist in the next few days for re-evaluation and further care/management. If your symptoms should worsen, new symptoms develop or any of the signs and symptoms we discussed should arise please return to the emergency room or call 911 (if needed). Definitive disposition and diagnosis as appropriate pending reevaluation and review of above. - Related Data Allergies Allergy/AdvReac Type Severity Reaction Status Date / Time No Known Allergies Allergy Verified 02/05/20 13:15 Home Meds: Home Meds Aspirin [Gissel Chewable Aspirin] 81 mg PO DAILY 12/01/13 [History] Metoprolol Succinate [Toprol XL] 100 mg PO DAILY tab.er 02/25/16 [Rx] Nitroglycerin [IJP: Nitroglycerin] 0.4 mg SL ASDIRECTED 02/25/16 [History] Spironolactone [Aldactone] 25 mg PO DAILY tablet 02/25/16 [Rx] metFORMIN [Glucophage XR] 500 mg PO BID #60 tab.er 02/25/16 [Rx] Glimepiride 1 mg PO BIDMEALS 06/13/16 [History] Past Medical History HEENT History: Reports: Impaired Vision, Other (See Below) Other HEENT History: wear glasses Cardiovascular History: Reports: CAD, High Cholesterol, Hypertension Respiratory History: Reports: None Gastrointestinal History: Reports: Colon Polyp, GERD, Other (See Below) Other Gastrointestinal History: bleeding ulcer, acid reflux, beeing w/u for dysphagia states has gallstones Genitourinary History: Reports: BPH, Other (See Below) Musculoskeletal History: Reports: Arthritis, Gout Neurological History: Reports: None Psychiatric History: Reports: None Endocrine/Metabolic History: Reports: Diabetes, Type II, Obesity/BMI 30+ Hematologic History: Reports: None Immunologic History: Reports: None Oncologic (Cancer) History: Reports: None Dermatologic History: Reports: None - Infectious Disease History Infectious Disease History: Reports: None - Past Surgical History Head Surgeries/Procedures: Reports: None HEENT Surgical History: Reports: None Cardiovascular Surgical History: Reports: None Other Cardiovascular Surgeries/Procedures: angiogram x2, no stents were placed Respiratory Surgical History: Reports: None GI Surgical History: Reports: Colonoscopy, EGD Male Surgical History: Reports: None Neurological Surgical History: Reports: None Social & Family History - Family History Family Medical History: No Pertinent Family History Cardiac: Reports: Hypertension, CT - Caffeine Use Caffeine Use: Reports: Coffee Other Caffeine Use: De caffenated Caffeine Use Comment: 1 CUP DAILY - Living Situation & Occupation Living situation: Reports: ED ROS GENERAL - Review of Systems Review Of Systems: Comprehensive ROS is negative, except as noted in HPI. ED EXAM, GENERAL - Physical Exam Exam: See Below (See dictation) Course - Vital Signs Last Recorded V/S: Last Vital Signs Temp 98.2 F 02/05/20 13:17 Pulse 92 02/05/20 13:17 Resp 16 02/05/20 13:17 BP 156/86 H 02/05/20 13:17 Pulse Ox 97 02/05/20 13:17 - Orders/Labs/Meds Orders: Active Orders 24 hr Category Date Time Status Saline Lock Insert [OM.PC] Stat Oth 02/05/20 13:09 Ordered Labs: Laboratory Tests 02/05/20 02/05/20 02/05/20 Range/Units 13:10 13:28 13:28 WBC 6.14 (4.0-11.0) K/uL RBC 4.99 (4.50-5.90) M/uL Hgb 13.7 (13.0-17.0) g/dL Hct 42.7 (38.0-50.0) % MCV 85.6 (80.0-98.0) fL MCH 27.5 (27.0-32.0) pg MCHC 32.1 (31.0-37.0) g/dL RDW Std Deviation 42.7 (28.0-62.0) fl RDW Coeff of Vanna 14 (11.0-15.0) % Plt Count 227 (150-400) K/uL MPV 9.70 (7.40-12.00) fL Neut % (Auto) 45.2 L (48.0-80.0) % Lymph % (Auto) 42.0 H (16.0-40.0) % [place] % (Auto) 8.6 (0.0-15.0) % Eos % (Auto) 3.9 (0.0-7.0) % Baso % (Auto) 0.3 (0.0-1.5) % Neut # (Auto) 2.8 (1.4-5.7) K/uL Lymph # (Auto) 2.6 H (0.6-2.4) K/uL [place] # (Auto) 0.5 (0.0-0.8) K/uL Eos # (Auto) 0.2 (0.0-0.7) K/uL Baso # (Auto) 0.0 (0.0-0.1) K/uL Nucleated RBC % 0.0 /100WBC Nucleated RBCs # 0 K/uL Sodium 139 (136-148) mmol/L Potassium 3.7 (3.5-5.1) mmol/L Chloride 102 (98-107) mmol/L Carbon Dioxide 24.7 (21.0-32.0) mmol/L BUN 14 (7.0-18.0) mg/dL Creatinine 1.4 H (0.8-1.3) mg/dL Est Cr Clr Drug Dosing 45.90 mL/min Estimated GFR (MDRD) > 60.0 ml/min Glucose 237 H (74-106) mg/dL Calcium 8.8 (8.5-10.1) mg/dL Total Bilirubin 0.3 (0.2-1.0) mg/dL AST 41 H (15-37) IU/L ALT 52 (14-63) IU/L Alkaline Phosphatase 92 (46-116) U/L Troponin I < 0.050 (0.000-0.056) ng/mL Total Protein 8.5 H (6.4-8.2) g/dL Albumin 3.9 (3.4-5.0) g/dL Globulin 4.6 H (2.6-4.0) g/dL Albumin/Globulin Ratio 0.9 (0.9-1.6) Urine Color YELLOW Urine Appearance CLEAR Urine pH 5.5 (5.0-8.0) Ur Specific [place] >= 1.030 (1.001-1.035) Urine Protein NEGATIVE (NEGATIVE) mg/dL Urine Glucose (UA) NEGATIVE (NEGATIVE) mg/dL Urine Ketones NEGATIVE (NEGATIVE) mg/dL Urine Occult Blood NEGATIVE (NEGATIVE) Urine Nitrite NEGATIVE (NEGATIVE) Urine Bilirubin NEGATIVE (NEGATIVE) Urine Urobilinogen 0.2 (<2.0) EU/dL Ur Leukocyte Esterase NEGATIVE (NEGATIVE) Meds: Medications Discontinued Medications Generic Name Dose Route Start Last Admin Trade Name Freq PRN Reason Stop Dose Admin Sodium Chloride 10 ml 02/05/20 13:09 Saline Flush FLUSH ASDIRECTED PRN Keep Vein Open Sodium Chloride 2.5 ml 02/05/20 13:09 Saline Flush FLUSH ASDIRECTED PRN Keep Vein Open Departure - Departure Time of Disposition: 14:54 Disposition: Home, Self-Care 01 Clinical Impression: Dizziness - Discharge Information Instructions: Dizziness, [id number] Referrals: José Miguel Heredia MD [Primary Care Provider] - Forms: ED Department Discharge Additional Instructions: The following information is given to patients seen in the emergency department who are being discharged to home. This information is to outline your options for follow-up care. We provide all patients seen in our emergency department with a follow-up referral. The need for follow-up, as well as the timing and circumstances, are variable depending upon the specifics of your emergency department visit. If you don't have a primary care physician on staff, we will provide you with a referral. We always advise you to contact your personal physician following an emergency department visit to inform them of the circumstance of the visit and for follow-up with them and/or the need for any referrals to a consulting specialist. The emergency department will also refer you to a specialist when appropriate. This referral assures that you have the opportunity for follow-up care with a specialist. All of these measure are taken in an effort to provide you with optimal care, which includes your follow-up. Under all circumstances we always encourage you to contact your private physician who remains a resource for coordinating your care. When calling for follow-up care, please make the office aware that this follow-up is from your recent emergency room visit. If for any reason you are refused follow-up, please contact the [facility] Emergency Department at and asked to speak to the emergency department charge nurse. [facility] [address] [place] [id number] [address] Thank you for choosing the [facility] emergency department in [place] for your medical needs today. It was a pleasure caring for you. Today you were seen in the emergency department for high blood pressure and dizziness. 1. Merry Emani and Happy Holidays Jose Antonio. Today your lab work, EKG and chest x-ray are within normal limits. Your blood pressure was slightly elevated although not enough that we would adjust your medications. You can continue to monitor your blood pressure and follow-up with your primary care provider if you feel that it continues to be high. 2. Take your home medications as directed. Make sure you are drinking plenty of fluids. 3. We encourage you to follow up with your primary care provider and/or recommended specialist in the next few days for re-evaluation and further care/management. If your symptoms should worsen, new symptoms develop or any of the signs and symptoms we discussed should arise please return to the emergency room or call 911 (if needed). Sepsis Event Note (ED) - Focused Exam Vital Signs: Vital Signs Temp Pulse Resp BP Pulse Ox 02/05/20 13:17 98.2 F 92 16 156/86 H 97 - My Orders Last 24 Hours: My Active Orders 02/05/20 13:09 Saline Lock Insert [OM.PC] Stat - Assessment/Plan Last 24 Hours: My Active Orders 02/05/20 13:09 Saline Lock Insert [OM.PC] Stat
[2020-02-05 13:25] VITALS: BP 156/86; PULSE 92
--- NOTE | 2020-02-05 14:07 | CR ---
INDICATION: Dizziness. Hypertension. TECHNIQUE: Chest 1 view. COMPARISON: 11/21/2017 FINDINGS: Cardiovascular and mediastinum: Heart size and vasculature are normal in caliber and appearance. Mediastinum is within normal limits. Lungs and pleural space: Lungs are clear. No pleural effusion. No pneumothorax. Bones and soft tissues: No acute findings. IMPRESSION: No acute pulmonary process. Dictated by Sy Mehta MD @ Feb 05 2020 2:03PM Signed by Dr. Sy Mehta @ Feb 05 2020 2:05PM
[2020-02-05 14:11] LABS: BLOOD UREA NITROGEN,BUN 14 mg/dL (7.0-18.0); CARBON DIOXIDE,CO2 24.7 mmol/L (21.0-32.0); CHLORIDE,CL 102 mmol/L (98-107); GLUCOSE RANDOM 237 mg/dL (74-106); POTASSIUM,K 3.7 mmol/L (3.5-5.1); SODIUM,NA 139 mmol/L (136-148)
--- NOTE | 2020-02-05 14:47 | PCM.SN.2 ---
- Free Text/Narrative Note: Time 210pm Rate 86 NSR no MADAI
== END 2020-02-05 15:00 | disposition home or self-care (01) ==
LOC: MW.ED 13:03
DX: R42 Dizziness and giddiness (principal); I25.10 Atherosclerotic heart disease of native coronary artery without angina pectoris; I10 Essential (primary) hypertension; M19.90 Unspecified osteoarthritis, unspecified site; E11.9 Type 2 diabetes mellitus without complications; E66.9 Obesity, unspecified; Z68.33 Body mass index [BMI] 33.0-33.9, adult; Z79.82 Long term (current) use of aspirin; Z79.84 Long term (current) use of oral hypoglycemic drugs; Z79.899 Other long term (current) drug therapy
CPT/HCPCS: 36415; 71045; 71045-26; 80053; 81003; 84484; 85025; 93005; 93010; 99283; 99284-25

== ENCOUNTER 2021-01-23 10:53 | Emergency (ER) | payer SELFPAY ==
[2021-01-23 12:55] LABS: CARBON DIOXIDE,CO2 25.4 mmol/L (21.0-32.0); POTASSIUM,K 4.3 mmol/L (3.5-5.1)
--- NOTE | 2021-01-23 13:31 | CR ---
Indication: Pain and swelling. Technique: Left foot 2 views. Comparison: None. Findings: Bones: Alignment is normal. No fractures or bone lesions. Joint spaces: No significant degenerative changes. Soft tissues: Moderate generalized soft tissue swelling dorsally. No focal soft tissue abnormality or foreign body. Dictated by Marcel Riddle MD @ 01/23/2021 1:29:09 PM (Electronically Signed)
--- NOTE | 2021-01-23 13:31 | CR ---
Indication: Pain and swelling. Technique: Left ankle 3 views. Comparison: None. Findings: Bones: Alignment is normal. No fractures or bone lesions. Joint spaces: Unremarkable. Soft tissues: Moderate generalized nonspecific soft tissue swelling. Dictated by Marcel Riddle MD @ 01/23/2021 1:30:37 PM (Electronically Signed)
[2021-01-23] MEDS ORDERED: Ketorolac 60 MG/2 ML SDV IM ONE (14:45)
[2021-01-23] MEDS ORDERED: Acetaminophen/HYDROcodone 325-5 MG Tab PO ONE (14:45)
--- NOTE | 2021-01-23 15:32 | EDM.PDOC ---
ED HPI GENERAL MEDICAL PROBLEM - General Chief Complaint: Lower Extremity Injury/Pain Stated Complaint: PAIN IN FEET Time Seen by Provider: 01/23/21 11:00 Source of Information: Reports: Patient History Limitations: Reports: No Limitations - History of Present Illness INITIAL COMMENTS - FREE TEXT/NARRATIVE: HISTORY AND PHYSICAL: History of present illness: Patient is a 71-year-old male who presents emergency room today with concern of bilateral foot pain and is concerned of gout flare. Patient states that he does have a history of gout and is supposed be taking allopurinol for maintenance but has not been taking this. Patient states that a few days ago, he began having swelling of both of his feet and states that his symptoms were coming and going until yesterday. Patient states his symptoms became more prominent overnight and states that they do feel typical of his usual gout flare. Patient states he is having worse pain on the left than the right but states he is also having pain at the base of the right toe. He states that his left lower extremities primarily in the ankle and in the top of his foot which is where his typical gout flares are. Patient states that he would like to use colchicine rather than indomethacin. Patient states he does have a history of type 2 diabetes, coronary artery disease, hypertension, and hyperlipidemia. He denies any trauma or injury of his lower extremities. Patient denies fever, chills, chest pain, shortness of breath, or cough. Denies headache, neck stiff ness, change in vision, syncope, or near syncope. Denies nausea, vomiting, abdominal pain, diarrhea, constipation, or dysuria. Has not noted any blood in urine or stool. Patient has been eating and drinking appropriately. Review of systems: As per history of present illness and below otherwise all systems reviewed and negative. Past medical history: As per history of present illness and as reviewed below otherwise noncontributory. Surgical history: As per history of present illness and as reviewed below otherwise noncontributory. Social history: See social history for further information Family history: As per history of present illness and as reviewed below otherwise noncontributory. Physical exam: General: Patient is alert, oriented, and in no acute distress. Patient sitting comfortably on exam table. Vitals stable and reviewed by me. HEENT: Atraumatic, normocephalic, pupils equal and reactive bilaterally, negative for conjunctival pallor or scleral icterus, mucous membranes moist, throat clear, neck supple, nontender, trachea midline. No drooling or trismus noted. No meningeal signs. No hot potato voice noted. Lungs: Clear to auscultation, breath sounds equal bilaterally, chest nontender. Heart: S1S2, regular rate and rhythm without overt murmur Abdomen: Soft, nondistended, nontender. Negative for masses or hepatosplenomegaly. Negative for costovertebral tenderness. Pelvis: Stable nontender. Genitourinary: Deferred. Rectal: Deferred. Skin: Intact, warm, dry. No lesions or rashes noted. Extremities: He does have moderate edema of bilateral lower feet and ankle. Examination also shows that patient is neurovascularly intact with dorsalis pedis and posterior tibial pulses bilaterally but does have pain of the generalized left ankle and dorsum foot and the base of the first digit on the right. There is somewhat increased warmth over the dorsum of the left foot but not on the right. Patient is -[place] and does limit the evaluation for erythema, however, no obvious erythema at this time. Patient has limited range of motion of the left ankle and digits due to pain but does have full range of motion of the remainder left lower extremity and right lower extremity.all compartments are soft of the left lower extremity. No overlying erythema of the left ankle. Intact sensation to light and deep touch of the complete left lower extremity and right lower extremity. Atraumatic, negative for cords or calf pain. Neurovascular unremarkable. Neuro: Awake, alert, oriented. Cranial nerves II through XII unremarkable. Cerebellum unremarkable. Motor and sensory unremarkable throughout. Exam nonfocal. Medical Decision Making: Patient is a 71-year-old male, with known gout, hypertension, hyperlipidemia, CAD, and type 2 diabetes who presents emergency room today with concern of left ankle pain and right big toe pain that he feels is typical of his usual gout flare. According to patient, he is supposed to be taking allopurinol daily for maintenance but has not been taking this. Upon arrival to the ED, patient is vitally stable and well-appearing on exam. He does have moderate edema of bilateral lower feet and ankle. Examination also shows that patient is neurovascularly intact with dorsalis pedis and posterior tibial pulses bilaterally but does have pain of the generalized left ankle and dorsum foot and the base of the first digit on the right. There is somewhat increased warmth over the dorsum of the left foot but not on the right. Patient is - [place] and does limit the evaluation for erythema, however, no obvious erythema at this time. Patient has limited range of motion of the left ankle and digits due to pain but does have full range of motion of the remainder left lower extremity and right lower extremity. CBC does show mild leukocytosis at 12.2, anemia with hemoglobin 10.7, hematocrit 33.6. Patient has have thrombocytosis of 422, otherwise mild derangements of CMP unremarkable. CMP does show an elevation of glucose at 138. AST is elevated in isolation at 67. Otherwise mild derangements of CMP are unremarkable. Uric acid is within normal limits. Ankle x-ray of the left and foot x-ray of the right shows no acute findings. Does show some moderate soft tissue swelling. Upon reevaluation of patient, he remains vitally stable and comfortable throughout stay in ED. I did discuss with patient the possibility of gout versus early cellulitis given his mild leukocytosis, discussed treating for both. Patient does state this does feel typical of his gout and he is requesting colchicine instead of indomethacin. I did discuss with patient that I would like him to closely follow-up with a coil maker for close follow-up for improvement versus worsening symptoms. Strict return precautions thoroughly discussed with patient. Voices understanding and is agreeable to plan of care. Denies any further questions or concerns at this time. Diagnostics: CBC, CMP, uric acid, left ankle x-ray, right foot x-ray Therapeutics: Toradol, [place] tab Prescription: Colchicine, Keflex Impression: Left ankle pain / edema, cellulitis vs gout Right foot pain Plan: 1. Take medication as prescribed. You can also use Tylenol as directed for pain and discomfort. 2. Follow-up with her primary care provider and podiatry provider as discussed. The number has been provided above for you to call and set up an appointment time. 3. Return to the ED as needed and as discussed. Definitive disposition and diagnosis as appropriate pending reevaluation and review of above. Treatments SWATCH FOLDER: Reports: Acetaminophen bilateral feet Pain Score (Numeric/FACES): 10 - Related Data Allergies Allergy/AdvReac Type Severity Reaction Status Date / Time No Known Allergies Allergy Verified 01/23/21 11:04 Home Meds: Home Meds Aspirin [Gissel Chewable Aspirin] 81 mg PO DAILY 10/21/14 [History] Nitroglycerin [IJP: Nitroglycerin] 0.4 mg SL ASDIRECTED 02/25/16 [History] Spironolactone [Aldactone] 25 mg PO DAILY tablet 02/25/16 [Rx] Colchicine 0.6 mg PO ASDIRECTED #3 capsule 01/23/21 [Rx] Ezetimibe 10 mg PO BEDTIME 01/23/21 [History] Metoprolol Succinate [Toprol XL] 50 mg PO DAILY 01/23/21 [History] Tamsulosin HCl 0.4 mg PO BEDTIME 01/23/21 [History] Valsartan 320 mg PO DAILY 01/23/21 [History] cephALEXin [Keflex] 500 mg PO Q8H 10 Days #30 cap 01/23/21 [Rx] glipiZIDE [Glucotrol] 5 mg PO DAILY 01/23/21 [History] Past Medical History HEENT History: Reports: Impaired Vision, Other (See Below) Other HEENT History: wear glasses Cardiovascular History: Reports: CAD, High Cholesterol, Hypertension Respiratory History: Reports: None Gastrointestinal History: Reports: Colon Polyp, GERD, Other (See Below) Other Gastrointestinal History: bleeding ulcer, acid reflux, beeing w/u for dysphagia states has gallstones Genitourinary History: Reports: BPH, Other (See Below) Musculoskeletal History: Reports: Arthritis, Gout Neurological History: Reports: None Psychiatric History: Reports: None Endocrine/Metabolic History: Reports: Diabetes, Type II, Obesity/BMI 30+ Hematologic History: Reports: None Immunologic History: Reports: None Oncologic (Cancer) History: Reports: None Dermatologic History: Reports: None - Infectious Disease History Infectious Disease History: Reports: Chicken Pox - Past Surgical History Head Surgeries/Procedures: Reports: None HEENT Surgical History: Reports: None Cardiovascular Surgical History: Reports: None Other Cardiovascular Surgeries/Procedures: angiogram x2, no stents were placed Respiratory Surgical History: Reports: None GI Surgical History: Reports: Colonoscopy, EGD Male Surgical History: Reports: None Neurological Surgical History: Reports: None Social & Family History - Family History Family Medical History: No Pertinent Family History Cardiac: Reports: Hypertension, [place] - Tobacco Use Tobacco Use Status *Q: Never Tobacco User - Caffeine Use Caffeine Use: Reports: Coffee Other Caffeine Use: De caffenated Caffeine Use Comment: 1 CUP DAILY - Recreational Drug Use Recreational Drug Use: No - Living Situation & Occupation Living situation: Reports: Review of Systems - Review of Systems Review Of Systems: Comprehensive ROS is negative, except as noted in HPI. ED EXAM, GENERAL - Physical Exam Exam: See Below (see dictation) Course - Vital Signs Last Recorded V/S: Last Vital Signs Temp 97.6 F 01/23/21 11:05 Pulse 88 01/23/21 16:40 Resp 20 01/23/21 16:40 BP 131/94 H 01/23/21 16:40 Pulse Ox 99 01/23/21 16:40 - Orders/Labs/Meds Labs: Laboratory Tests 01/23/21 01/23/21 Range/Units 11:45 11:45 WBC 12.20 H (4.0-11.0) K/uL RBC 4.03 L (4.50-5.90) M/uL Hgb 10.7 L (13.0-17.0) g/dL Hct 33.6 L (38.0-50.0) % MCV 83.4 (80.0-98.0) fL MCH 26.6 L (27.0-32.0) pg MCHC 31.8 (31.0-37.0) g/dL RDW Std Deviation 38.7 (28.0-62.0) fl RDW Coeff of Vanna 13 (11.0-15.0) % Plt Count 422 H (150-400) K/uL MPV 9.10 (7.40-12.00) fL Neut % (Auto) 85.6 H (48.0-80.0) % Lymph % (Auto) 7.5 L (16.0-40.0) % Stevens % (Auto) 6.7 (0.0-15.0) % Eos % (Auto) 0.1 (0.0-7.0) % Baso % (Auto) 0.1 (0.0-1.5) % Neut # (Auto) 10.4 H (1.4-5.7) K/uL Lymph # (Auto) 0.9 (0.6-2.4) K/uL Stevens # (Auto) 0.8 (0.0-0.8) K/uL Eos # (Auto) 0.0 (0.0-0.7) K/uL Baso # (Auto) 0.0 (0.0-0.1) K/uL Nucleated RBC % 0.0 /100WBC Nucleated RBCs # 0 K/uL Sodium 136 (136-148) mmol/L Potassium 4.3 (3.5-5.1) mmol/L Chloride 100 (98-107) mmol/L Carbon Dioxide 25.4 (21.0-32.0) mmol/L BUN 16 (7.0-18.0) mg/dL Creatinine 1.3 (0.8-1.3) mg/dL Est Cr Clr Drug Dosing 48.73 mL/min Estimated GFR (MDRD) 54.4 ml/min Glucose 138 H (74-106) mg/dL Uric Acid 4.1 (2.6-7.2) mg/dL Calcium 9.4 (8.5-10.1) mg/dL Total Bilirubin 0.5 (0.2-1.0) mg/dL AST 67 H (15-37) IU/L ALT 48 (14-63) IU/L Alkaline Phosphatase 117 H (46-116) U/L Total Protein 9.0 H (6.4-8.2) g/dL Albumin 3.1 L (3.4-5.0) g/dL Globulin 5.9 H (2.6-4.0) g/dL Albumin/Globulin Ratio 0.5 L (0.9-1.6) Meds: Medications Discontinued Medications Generic Name Dose Route Start Last Admin Trade Name Freq PRN Reason Stop Dose Admin Hydrocodone Bitart/Acetaminophen 1 tab 01/23/21 14:45 01/23/21 14:51 Acetaminophen/Hydrocodone 325-5 Mg Tab PO 01/23/21 14:46 1 tab ONETIME ONE Administration Ketorolac Tromethamine 60 mg 01/23/21 14:45 01/23/21 14:51 Ketorolac 60 Mg/2 Ml Sdv IM 01/23/21 14:46 60 mg ONETIME ONE Administration Departure - Departure Time of Disposition: 15:31 Disposition: Home, Self-Care 01 Clinical Impression: Gout - Discharge Information Prescriptions: Colchicine 0.6 mg PO ASDIRECTED #3 capsule cephALEXin [Keflex] 500 mg PO Q8H 10 Days #30 cap Instructions: Gout, [id number] Referrals: PCP,None [Primary Care Provider] - Forms: ED Department Discharge Additional Instructions: The following information is given to patients seen in the emergency department who are being discharged to home. This information is to outline your options for follow-up care. We provide all patients seen in our emergency department with a follow-up referral. The need for follow-up, as well as the timing and circumstances, are variable depending upon the specifics of your emergency department visit. If you don't have a primary care physician on staff, we will provide you with a referral. We always advise you to contact your personal physician following an emergency department visit to inform them of the circumstance of the visit and for follow-up with them and/or the need for any referrals to a consulting specialist. The emergency department will also refer you to a specialist when appropriate. This referral assures that you have the opportunity for follow-up care with a specialist. All of these measure are taken in an effort to provide you with optimal care, which includes your follow-up. Under all circumstances we always encourage you to contact your private physician who remains a resource for coordinating your care. When calling for follow-up care, please make the office aware that this follow-up is from your recent emergency room visit. If for any reason you are refused follow-up, please contact the [facility] Emergency Department at and asked to speak to the emergency department charge nurse. [facility] [address] [place] [id number] [address] [facility], Dr. Gyu, Podiatry [address] [place] [address] 1. Take medication as prescribed. You can also use Tylenol as directed for pain and discomfort. 2. Follow-up with her primary care provider and podiatry provider as discussed. The number has been provided above for you to call and set up an appointment time. 3. Return to the ED as needed and as discussed. Sepsis Event Note (ED) - Evaluation Sepsis Screening Result: No Definite Risk - Focused Exam Vital Signs: Vital Signs Temp Pulse Resp BP Pulse Ox 01/23/21 16:40 88 20 131/94 H 99 01/23/21 11:05 97.6 F 89 20 119/66 97
[2021-01-23 16:41] VITALS: BP 131/94; PULSE 88
== END 2021-01-23 15:50 | disposition home or self-care (01) ==
LOC: MW.ED 10:53
DX: M10.9 Gout, unspecified (principal); I25.10 Atherosclerotic heart disease of native coronary artery without angina pectoris; I10 Essential (primary) hypertension; E11.9 Type 2 diabetes mellitus without complications; E66.9 Obesity, unspecified; Z68.36 Body mass index [BMI] 36.0-36.9, adult; Z79.82 Long term (current) use of aspirin; Z79.84 Long term (current) use of oral hypoglycemic drugs; Z79.899 Other long term (current) drug therapy
CPT/HCPCS: 36415; 73610; 73620; 80053; 84550; 85025; 96372; 99283; A9270; J1885

== ENCOUNTER 2021-05-02 08:16 | Emergency (ER) | payer BC ==
[2021-05-02] MEDS ORDERED: Diazepam 2 MG Tab PO ONE (08:42)
[2021-05-02] MEDS ORDERED: Ibuprofen 600 MG Tab PO ONE (08:42)
[2021-05-02 09:30] LABS: BLOOD UREA NITROGEN,BUN 13 mg/dL (7.0-18.0); CARBON DIOXIDE,CO2 25.1 mmol/L (21.0-32.0); CHLORIDE,CL 103 mmol/L (98-107); GLUCOSE RANDOM 171 mg/dL (74-106); POTASSIUM,K 4.1 mmol/L (3.5-5.1); SODIUM,NA 138 mmol/L (136-148)
[2021-05-02] MEDS ORDERED: Iopamidol 755 MG/ML 500 ML Multipack Bottle IVPUSH STA (10:45)
[2021-05-02 12:42] VITALS: BP 141/77; PULSE 60
== END 2021-05-02 12:42 | disposition home or self-care (01) ==
LOC: MW.ED 08:16
DX: M54.2 Cervicalgia (principal); I25.119 Atherosclerotic heart disease of native coronary artery with unspecified angina pectoris; E11.9 Type 2 diabetes mellitus without complications; E66.9 Obesity, unspecified; M10.9 Gout, unspecified; N40.0 Benign prostatic hyperplasia without lower urinary tract symptoms; Z68.33 Body mass index [BMI] 33.0-33.9, adult; Z79.82 Long term (current) use of aspirin; Z79.899 Other long term (current) drug therapy
CPT/HCPCS: 36415; 70498; 72125; 80053; 85025; 85610; 99284; A9270; Q9967

== ENCOUNTER 2021-08-04 14:55 | Emergency (ER) | payer SELFPAY ==
[2021-08-04] MEDS ORDERED: Aspirin 81 MG Tab.Chew PO ONE (14:58)
[2021-08-04 15:43] LABS: POTASSIUM,K 3.7 mmol/L (3.5-5.1)
[2021-08-04 16:41] VITALS: BP 160/76; PULSE 73
== END 2021-08-04 16:58 | disposition home or self-care (01) ==
LOC: MW.ED 14:55
DX: R42 Dizziness and giddiness (principal); I10 Essential (primary) hypertension; I25.10 Atherosclerotic heart disease of native coronary artery without angina pectoris; E78.00 Pure hypercholesterolemia, unspecified; E11.9 Type 2 diabetes mellitus without complications; M19.90 Unspecified osteoarthritis, unspecified site; E66.9 Obesity, unspecified; Z68.35 Body mass index [BMI] 35.0-35.9, adult; Z20.822 Contact with and (suspected) exposure to COVID-19; Z79.82 Long term (current) use of aspirin; Z79.899 Other long term (current) drug therapy
CPT/HCPCS: 36415; 71045; 80053; 83735; 84484; 85025; 85610; 87635; 93005; 99284; A9270; 93010; 99283; U0002

== ENCOUNTER 2021-08-14 16:38 | Emergency (ER) | payer SELFPAY ==
[2021-08-14 17:02] VITALS: BP 152/85; PULSE 71
[2021-08-14 17:55] LABS: CARBON DIOXIDE,CO2 26.1 mmol/L (21.0-32.0); POTASSIUM,K 3.7 mmol/L (3.5-5.1)
[2021-08-14] MEDS ORDERED: Loperamide 2 MG Cap PO ONE (18:45)
== END 2021-08-14 19:21 | disposition home or self-care (01) ==
LOC: MW.ED 16:38
DX: R19.7 Diarrhea, unspecified (principal); I10 Essential (primary) hypertension; E78.00 Pure hypercholesterolemia, unspecified; I25.10 Atherosclerotic heart disease of native coronary artery without angina pectoris; E11.9 Type 2 diabetes mellitus without complications; E66.9 Obesity, unspecified; M10.9 Gout, unspecified; Z68.33 Body mass index [BMI] 33.0-33.9, adult; Z79.82 Long term (current) use of aspirin; Z79.899 Other long term (current) drug therapy
CPT/HCPCS: 36415; 80053; 85025; 87045; 87046; 87324; 87328; 87329; 87449; 87899; 99284; A9270; 99283

== ENCOUNTER 2021-08-26 11:05 | Emergency (ER) | payer BC ==
[2021-08-26] MEDS ORDERED: Lidocaine 1% 5 ML VIAL INJECT ONE (12:10)
[2021-08-26 12:35] LABS: CARBON DIOXIDE,CO2 23.1 mmol/L (21.0-32.0); POTASSIUM,K 3.6 mmol/L (3.5-5.1)
[2021-08-26 15:26] VITALS: BP 138/79; PULSE 81
== END 2021-08-26 15:09 | disposition home or self-care (01) ==
LOC: MW.ED 11:05
DX: M10.9 Gout, unspecified (principal); R60.0 Localized edema; D72.829 Elevated white blood cell count, unspecified; I25.119 Atherosclerotic heart disease of native coronary artery with unspecified angina pectoris; E78.00 Pure hypercholesterolemia, unspecified; I10 Essential (primary) hypertension; E11.9 Type 2 diabetes mellitus without complications; E66.9 Obesity, unspecified; Z68.30 Body mass index [BMI] 30.0-30.9, adult; Z79.82 Long term (current) use of aspirin; Z79.899 Other long term (current) drug therapy
CPT/HCPCS: 20610; 36415; 73562-26-RT; 73562-RT; 80048; 84550; 85025; 87070; 87075; 87205; 89050; 89060; 99283; 99283-25

== ENCOUNTER 2022-06-19 08:49 | Day surgery (SDC) | payer BC ==
[~2022-06-19 08:49] MED LIST: Lactated Ringers 1,000 ML IV SCH; Sodium Chloride 0.9% 10 ML Syringe FLUSH PRN; Sodium Chloride 0.9% 2.5 ML Syringe FLUSH PRN; Sodium Chloride 0.9% 20 ML SDV IV PRN
[2022-06-19] MEDS ORDERED: Propofol 200 MG/20 ML SDV ONE ×2 (09:05→09:45)
[2022-06-19] MEDS ORDERED: Lidocaine 2% 5 ML SDV ONE (09:06)
[2022-06-19] MEDS ORDERED: Dexmedetomidine 200 MCG/2 ML SDV ONE (09:07)
[2022-06-19] MEDS ORDERED: Water For Injection, Sterile 20 ML ONE (09:07)
[2022-06-19 12:46] VITALS: BP 140/76; PULSE 63
== END 2022-06-19 11:30 | disposition home or self-care (01) ==
LOC: MW.SDS 08:49
PROVIDERS: ATTEND Surgery
DX: K21.00 Gastro-esophageal reflux disease with esophagitis, without bleeding (principal); K29.80 Duodenitis without bleeding; K25.9 Gastric ulcer, unspecified as acute or chronic, without hemorrhage or perforation; K57.30 Diverticulosis of large intestine without perforation or abscess without bleeding; I25.119 Atherosclerotic heart disease of native coronary artery with unspecified angina pectoris; I78.1 Nevus, non-neoplastic; E66.9 Obesity, unspecified; I10 Essential (primary) hypertension; F41.9 Anxiety disorder, unspecified; N40.0 Benign prostatic hyperplasia without lower urinary tract symptoms; E11.9 Type 2 diabetes mellitus without complications; E78.00 Pure hypercholesterolemia, unspecified; M10.9 Gout, unspecified; E55.9 Vitamin D deficiency, unspecified; Z79.899 Other long term (current) drug therapy; Z79.82 Long term (current) use of aspirin; Z98.890 Other specified postprocedural states; Z87.891 Personal history of nicotine dependence
CPT/HCPCS: 43239; 45380; 82947; J2704; J7120; J3490

== ENCOUNTER 2022-10-15 13:58 | Emergency (ER) | payer BC ==
[2022-10-15] MEDS ORDERED: Colchicine 0.6 MG Tab PO ONE ×2 (16:17→16:30)
[2022-10-15] MEDS ORDERED: Acetaminophen/HYDROcodone 325-5 MG Tab PO ONE (16:31)
[2022-10-15 16:48] VITALS: BP 147/80; PULSE 73
== END 2022-10-15 16:50 | disposition home or self-care (01) ==
LOC: MW.ED 13:58
DX: M10.9 Gout, unspecified (principal); I25.119 Atherosclerotic heart disease of native coronary artery with unspecified angina pectoris; E78.00 Pure hypercholesterolemia, unspecified; I10 Essential (primary) hypertension; E11.9 Type 2 diabetes mellitus without complications; K21.9 Gastro-esophageal reflux disease without esophagitis; E66.9 Obesity, unspecified; Z68.36 Body mass index [BMI] 36.0-36.9, adult; Z79.899 Other long term (current) drug therapy; Z77.22 Contact with and (suspected) exposure to environmental tobacco smoke (acute) (chronic)
CPT/HCPCS: 99283; A9270

== ENCOUNTER 2023-07-04 08:22 | Day surgery (SDC) | payer BC ==
[~2023-07-04 08:22] MED LIST changes: -Lactated Ringers 1,000 ML IV SCH
[2023-07-04] MEDS ORDERED: Propofol 200 MG/20 ML SDV ONE (09:04)
[2023-07-04] MEDS: Lactated Ringers 1,000 ML IV SCH (09:09)
[2023-07-04 13:05] VITALS: BP 108/65; PULSE 63
== END 2023-07-04 12:09 | disposition home or self-care (01) ==
LOC: MW.SDS 08:22
PROVIDERS: ATTEND Surgery
DX: K29.50 Unspecified chronic gastritis without bleeding (principal); K21.9 Gastro-esophageal reflux disease without esophagitis; K22.2 Esophageal obstruction; I10 Essential (primary) hypertension; I25.10 Atherosclerotic heart disease of native coronary artery without angina pectoris; N40.0 Benign prostatic hyperplasia without lower urinary tract symptoms; E11.9 Type 2 diabetes mellitus without complications; E78.00 Pure hypercholesterolemia, unspecified; Z87.891 Personal history of nicotine dependence; Z79.82 Long term (current) use of aspirin; Z79.84 Long term (current) use of oral hypoglycemic drugs; Z79.899 Other long term (current) drug therapy
CPT/HCPCS: 43239; 82947; J2704; J7120; 00731; 99100

== ENCOUNTER 2024-04-16 06:14 | Emergency (ER) | payer BC ==
[2024-04-16 07:03] VITALS: BP 126/74; PULSE 60
== END 2024-04-16 06:58 | disposition home or self-care (01) ==
LOC: MW.ED 06:14
DX: I10 Essential (primary) hypertension (principal); E78.00 Pure hypercholesterolemia, unspecified; E66.9 Obesity, unspecified; E11.9 Type 2 diabetes mellitus without complications; Z79.82 Long term (current) use of aspirin; Z79.899 Other long term (current) drug therapy; Z68.33 Body mass index [BMI] 33.0-33.9, adult
CPT/HCPCS: 99283

== ENCOUNTER 2025-01-04 11:57 | Emergency (ER) | payer BC ==
[2025-01-04] MEDS: Ketorolac 30 MG/ML SDV IM ONE (15:25)
[2025-01-04 15:29] VITALS: BP 152/98; PULSE 78
== END 2025-01-04 15:33 | disposition home or self-care (01) ==
LOC: MW.ED 11:57
DX: M17.12 Unilateral primary osteoarthritis, left knee (principal); I10 Essential (primary) hypertension; E78.00 Pure hypercholesterolemia, unspecified; E66.9 Obesity, unspecified; E11.9 Type 2 diabetes mellitus without complications; Z68.32 Body mass index [BMI] 32.0-32.9, adult; Z79.82 Long term (current) use of aspirin; Z79.899 Other long term (current) drug therapy
CPT/HCPCS: 73562; 93971; 96372; 99284; A9270; J1885; J8540